=== PATIENT | male | born 1960 | race Caucasian/White ===

== ENCOUNTER 2019-10-05 14:43 | Outpatient (CLI) | payer OTHER, SELFPAY ==
[2019-10-05 14:53] LABS: Basophils Absolute Auto 0.06 K/mm3 (0.00-0.10); Basophils Percent Auto 0.6 % (0.0-1.0); Eosinophils Percent Auto 3.1 % (1.0-6.0); Hematocrit 51.4 % (40.0-54.0); Hemoglobin 17.3 g/dL (14.0-18.0); Immature Granulocyte Absolute 0.05 K/mm3 (0.00-0.00); Immature Granulocyte Percent A 0.5 % (0.0-0.0); Lymphocytes Absolute Auto 1.85 K/mm3 (1.10-4.50); Lymphocytes Percent Auto 19.3 % (18.0-42.0); Mean Corpuscular HGB Conc 33.7 g/dL (32.0-36.0); Mean Corpuscular Hemoglobin 30.1 pg (27.0-31.0); Mean Corpuscular Volume 89.4 fL (78.0-102.0); Mean Platelet Volume 9.7 fl (8.7-11.0); Monocytes Absolute Auto 0.94 K/mm3 (0.10-0.90); Monocytes Percent Auto 9.8 % (2.0-11.0); Neutrophils Absolute Auto 6.4 K/mm3 (1.7-7.2); Neutrophils Percent Auto 66.7 % (50.0-70.0); Platelet Count Result 208 K/mm3 (150-420); Red Blood Count 5.75 M/mm3 (4.70-6.10); Red Cell Distribution Width 13.6 % (11.6-14.4); White Blood Count 9.6 K/mm3 (4.8-10.8)
[2019-10-05 16:02] LABS: Alanine Aminotransferase 31 U/L (16-63); Alkaline Phosphatase 68 U/L (46-116); Anion Gap 14.5 mmol/L (7-16); Aspartate Amino Transferase 27 U/L (15-37); Bilirubin,Total 0.5 mg/dL (0.00-1.00); Blood Urea Nitrogen 27 mg/dL (7-18); Calcium 8.7 mg/dL (8.5-10.1); Carbon Dioxide 27 mmol/L (21-32); Chloride 102 mmol/L (98-108); Cholesterol 211 mg/dL (0-200); Estimated Glomerular Filt Rate 51; Glucose 81 mg/dL (70-99); HDL Direct 36 mg/dL (40-60); LDL Cholesterol Calculated 154 mg/dL (<130); Osmolality Calculated 292 mOsm/kg (285-295); Potassium 4.5 mmol/L (3.5-5.1); Prostate Specific Antigen 0.8 ng/mL (< OR = 4.0); Sodium 139 mmol/L (136-145); Total Protein 6.9 g/dL (6.4-8.2); Triglycerides 107 mg/dL (0-150)
[2019-10-09 14:50] LABS: Testosterone Free 41.2 pg/mL (35.0-155.0); Testosterone Total 358 ng/dL (250-1100)
== END 2019-10-05 14:44 | disposition home or self-care (01) ==
LOC: CHSLAB 14:46
PROVIDERS: PCP Nurse Practitioner Family; Visit Provider Nurse Practitioner Family
DX: I10 Essential (primary) hypertension (principal); R79.89 Other specified abnormal findings of blood chemistry; Z12.5 Encounter for screening for malignant neoplasm of prostate
CPT/HCPCS: 36415; 80053; 80061; 84153; 84402; 84403; 85025

== ENCOUNTER 2020-12-10 14:02 | Outpatient (CLI) | payer OTHER, SELFPAY ==
[2020-12-15 12:49] LABS: Testosterone Free 21.5 pg/mL (35.0-155.0); Testosterone Total 247 ng/dL (250-1100)
== END 2020-12-10 14:03 | disposition home or self-care (01) ==
LOC: CHSLAB 14:04
PROVIDERS: PCP Nurse Practitioner Family; Visit Provider Nurse Practitioner Family
DX: R79.89 Other specified abnormal findings of blood chemistry (principal)
CPT/HCPCS: 36415; 84402; 84403

== ENCOUNTER 2021-07-11 13:11 | Outpatient (CLI) | payer OTHER, SELFPAY ==
--- NOTE | ~2021-07-11 | US_ITS ---
EXAMINATION: US arterial ankle brachial ind DATE: 07/11/2021 13:38 INDICATION: Chest pain. Peripheral vascular disease risk factors of hypertension and smoking. TECHNIQUE: Segmental pressures and plethysmographic and Doppler waveforms of the brachial and lower e xtremity arteries were obtained. COMPARISON: None. FINDINGS: Right and left brachial artery pressures of 139 mm Hg and 146 mm Hg, respectively, are concordant (no rmal difference <= 30 mmHg). The right ankle-brachial index (CLAUDE) is 0.81 (normal >= 0.9-1.0). The right great toe-brachial index (TBI) is 0.80 (normal >= 0.65). Arterial Doppler waveforms are biphasic with brisk systolic upstrokes at both the right posterior tibial and dorsalis pedis arteries. The left CLAUDE is 0.75. The left TBI is 0.68. Arterial Doppler waveforms are biphasic with brisk systol ic upstrokes at both the left posterior tibial and dorsalis pedis arteries. IMPRESSION: 1. Arterial occlusive disease to the bilateral lower limbs with mildly decreased bilateral ABIs. Reviewed, dictated and finalized at location A. ITE SANDBLASTER APPRENTICE IMPRESSION: 1. Arterial occlusive disease to the bilateral lower limbs with mildly decrease d bilateral ABIs.
== END 2021-07-11 13:12 | disposition home or self-care (01) ==
LOC: CHSIMG 13:12
PROVIDERS: PCP Nurse Practitioner Family; Visit Provider Nurse Practitioner Family
DX: R07.9 Chest pain, unspecified (principal); M79.605 Pain in left leg; R25.2 Cramp and spasm; I77.1 Stricture of artery
CPT/HCPCS: 93922

== ENCOUNTER 2021-08-01 13:03 | Outpatient (CLI) | payer OTHER, SELFPAY ==
--- NOTE | ~2021-08-01 | XR_ITS ---
XR foot LT standing 2V DATE: 08/01/2021 13:23 INDICATION: Left foot pain between third and fourth digits after being run over by wheelchair TECHNIQUE: AP and lateral views COMPARISON: None FINDINGS: No fracture or dislocation, periosteal reaction or bone destruction. Joint spaces are prese rved. IMPRESSION: Negative Reviewed, dictated and finalized at location A. IMPRESSION: Negative
== END 2021-08-01 13:04 | disposition home or self-care (01) ==
LOC: CHSIMG 13:06
PROVIDERS: PCP Nurse Practitioner Family; Visit Provider Nurse Practitioner Family
DX: M79.672 Pain in left foot (principal)
CPT/HCPCS: 73620

== ENCOUNTER 2022-04-23 12:51 | Outpatient (CLI) | payer OTHER, SELFPAY ==
[2022-05-01 09:24] LABS: Testosterone Free 1403.7 pg/mL (46.0-224.0); Testosterone Total 4017 ng/dL (250-1100)
== END 2022-04-23 12:52 | disposition home or self-care (01) ==
LOC: CHSLAB 12:53
PROVIDERS: PCP Nurse Practitioner Family; Visit Provider Nurse Practitioner Family
DX: R79.89 Other specified abnormal findings of blood chemistry (principal)
CPT/HCPCS: 36415; 84402; 84403

== ENCOUNTER 2022-06-15 16:16 | Outpatient (CLI) | payer OTHER, SELFPAY ==
[2022-06-15 16:55] LABS: Cholesterol 183 mg/dL (0-200); HDL Direct 36 mg/dL (40-60); LDL Cholesterol Calculated 115 mg/dL (<130); Triglycerides 158 mg/dL (0-150)
[2022-06-23 13:35] LABS: Testosterone Free 21.7 pg/mL (35.0-155.0); Testosterone Total 163 ng/dL (250-1100)
== END 2022-06-15 16:17 | disposition home or self-care (01) ==
LOC: CHSLAB 16:18
PROVIDERS: PCP Nurse Practitioner Family; Visit Provider Nurse Practitioner Family
DX: R79.89 Other specified abnormal findings of blood chemistry (principal); E78.5 Hyperlipidemia, unspecified
CPT/HCPCS: 36415; 80061; 84402; 84403

== ENCOUNTER 2022-08-15 08:09 | Outpatient (CLI) | payer OTHER, SELFPAY ==
[2022-08-19 16:14] LABS: Testosterone Free 79.9 pg/mL (35.0-155.0); Testosterone Total 563 ng/dL (250-1100)
== END 2022-08-15 08:10 | disposition home or self-care (01) ==
LOC: CHSLAB 08:11
PROVIDERS: PCP Nurse Practitioner Family; Visit Provider Nurse Practitioner Family
DX: R79.89 Other specified abnormal findings of blood chemistry (principal)
CPT/HCPCS: 36415; 84402; 84403

== ENCOUNTER 2022-09-13 08:09 | Outpatient (CLI) | payer OTHER, SELFPAY ==
--- NOTE | ~2022-09-13 | US_ITS ---
US arterial duplex LE LT 09/13/2022 08:53 Indication: Left leg pain and symptoms involving the circulatory system. Procedure: High-resolution duplex arterial Doppler examination of the left lower extremity Comparison: Comparison to 07/11/2021. Findings: The following velocities were obtained: Common femoral artery-76 cm/s Profunda femoral artery-90 cm/s Proximal SFA-36 cm/s Mid SFA-occluded Distal SFA 24 cm/s Popliteal artery-20 cm/s Posterior tibial artery-19 cm/s Anterior tibial artery-12 cm/s Peroneal artery-13 cm/s Impression: 1: Diminished velocities in the left lower extremity throughout with occlusion of the mid aspect of t he SFA at the level of the stent. The distal SFA is filled with collateral vessels. Findings compatib le with advanced peripheral arterial disease. Reviewed, dictated and finalized at location L. Impression: 1: Diminished velocities in the left lower extremity throughout with occlusion of the mid aspect of the SFA at the level of the stent. The distal SFA is fille d with collateral vessels. Findings compatible with advanced peripheral arteria l disease.
--- NOTE | ~2022-09-13 | US_ITS ---
EXAMINATION:US venous doppler LE LT INDICATION:Left leg claudication TECHNIQUE: Multiple grayscale, color flow and Doppler images of the left lower extremity deep venous systems were obtained and reviewed. COMPARISON:No prior studies for comparison. FINDINGS: The common femoral, superficial femoral and popliteal veins demonstrate normal respiratory variation, augmentation and compressibility. Color flow is also seen within the posterior tibial, pe roneal, greater saphenous and profunda veins. IMPRESSION: 1: No lower extremity deep venous thrombosis. Reviewed, dictated and finalized at location L.
== END 2022-09-13 08:10 | disposition home or self-care (01) ==
LOC: CHSIMG 08:10
PROVIDERS: PCP Nurse Practitioner Family; Visit Provider Nurse Practitioner Family
DX: M79.605 Pain in left leg (principal); R09.89 Other specified symptoms and signs involving the circulatory and respiratory systems
CPT/HCPCS: 93926; 93971

== ENCOUNTER 2022-09-24 13:19 | Outpatient (CLI) | payer OTHER, SELFPAY ==
--- NOTE | 2022-09-24 13:23 | ECHO_ITS ---
Patient Info Name: Minerva Magdaleno Age: 62 years : 1960 Gender: Male Ht: 65 in Wt: 160 lbs BSA: 1.84 m2 HR: 68 bpm BP: 122 / 63 mmHg Heart Rhythm: Sinus Rhythm Technical Quality: Good Exam Date: 09/24/2022 1:13 PM Exam Location: [facility] Patient Status: Outpatient Admit Date: 09/24/2022 Staff Ordering Physician: Zoya Tanner NP Dental Ceramist Helper: Delia Rojas RDCS Attending Provider: Zoya Tanner NP Referring Physician: Flores ONTIVEROS; Exam Type: CA echo doppler color flow Study Info Indications - fatigue, chest discomfort Complete two-dimensional, color flow and Doppler transthoracic echocardiogram is performed. Summary 1. Complete two-dimensional, color flow and Doppler transthoracic echocardiogram is performed. 2. Left ventricular chamber dimension is normal. 3. Left ventricular systolic function is normal, estimated at 60-65%. 4. There is mild concentric increased left ventricular wall thickness. 5. The left ventricular diastolic function is grade II diastolic dysfunction. 6. E/e' 13 is mildly elevated. 7. There is trace mitral valve regurgitation. 8. No pulmonary hypertension, estimated pulmonary arterial systolic pressure is 17 mmHg. Left Ventricle E/e' 13 is mildly elevated. Left ventricular chamber dimension is normal. Left ventricular systolic function is normal, estimated at 60-65%. There is mild concentric increased left ventricular wall thickness. The left ventricular diastolic function is grade II diastolic dysfunction. Right Ventricle Right ventricular systolic function is normal and with normal TAPSE 2.3 cm. Right ventricular chamber dimension is normal. Left Atria Left atrial chamber dimension is normal. Right Atria Right atrial chamber dimension is normal. Aortic Valve The aortic valve is trileaflet. There is no aortic valve stenosis. There is no aortic valve regurgitation. Pulmonic Valve There is no pulmonic regurgitation. Mitral Valve There is no mitral valve stenosis. There is trace mitral valve regurgitation. Tricuspid Valve There is no tricuspid valve regurgitation. No pulmonary hypertension, estimated pulmonary arterial systolic pressure is 17 mmHg. Pericardium/Pleural There is no pericardial effusion. Inferior Vena Cava Normal inferior vena cava with >50% collapse upon inspiration consistent with normal right atrial pressure, 5 mmHg. Aorta The aortic root size at the sinus of Valsalva is normal. Left Ventricular Outflow Tract Name Value Normal LVOT 2D LVOT Diameter 2.0 cm LVOT Doppler LVOT Peak Velocity 111 cm/s LVOT Peak Gradient 5 mmHg LVOT Mean Gradient 2 mmHg LVOT VTI 17 cm LVOT VTI/AV VTI Ratio 0.5 LVOT Stroke Volume 53 ml Pulmonic Valve Name Value Normal RVOT Doppler RVOT Peak Gradient
== END 2022-09-24 13:20 | disposition home or self-care (01) ==
LOC: CHSIMG 13:20
PROVIDERS: PCP Nurse Practitioner Family; Visit Provider Nurse Practitioner Family
DX: R07.89 Other chest pain (principal); R53.83 Other fatigue
CPT/HCPCS: 93306

== ENCOUNTER 2022-09-26 08:31 | Outpatient (CLI) | payer OTHER, SELFPAY ==
[2022-09-26 08:48] LABS: Hematocrit 44.2 % (40.0-54.0); Hemoglobin 14.3 g/dL (14.0-18.0); Mean Corpuscular HGB Conc 32.4 g/dL (32.0-36.0); Mean Corpuscular Hemoglobin 27.6 pg (27.0-31.0); Mean Corpuscular Volume 85.3 fL (78.0-102.0); Mean Platelet Volume 9.7 fl (8.7-11.0); Platelet Count Result 240 K/mm3 (150-420); Red Blood Count 5.18 M/mm3 (4.70-6.10); Red Cell Distribution Width 15.4 % (11.6-14.4)
[2022-10-01 10:57] LABS: Testosterone Total 1012 ng/dL (250-1100)
== END 2022-09-26 08:32 | disposition home or self-care (01) ==
LOC: CHSLAB 08:32
PROVIDERS: PCP Nurse Practitioner Family; Visit Provider Internal Medicine
DX: R79.89 Other specified abnormal findings of blood chemistry (principal); Z12.5 Encounter for screening for malignant neoplasm of prostate
CPT/HCPCS: 36415; 84153; 84402; 84403; 85027; G0103

== ENCOUNTER 2023-09-04 17:00 | Outpatient (NON) | payer OTHER, SELFPAY | END 2023-09-04 17:01 | disposition home or self-care (01) | LOC: CHSLAB 17:02 | PROVIDERS: Visit Provider Nurse Practitioner Family | DX: L08.9 Local infection of the skin and subcutaneous tissue, unspecified (principal) | CPT/HCPCS: 87070; 87075; 87147; 87181; 87205 ==

== ENCOUNTER 2023-10-07 08:02 | Outpatient (CLI) | payer OTHER, SELFPAY ==
[2023-10-07 08:18] LABS: Basophils Absolute Auto 0.11 K/mm3 (0.00-0.10); Basophils Percent Auto 1.2 % (0.0-1.0); Eosinophils Absolute Auto 0.33 K/mm3 (0.02-0.50); Eosinophils Percent Auto 3.5 % (1.0-6.0); Hematocrit 54.1 % (40.0-54.0); Hemoglobin 16.9 g/dL (14.0-18.0); Immature Granulocyte Absolute 0.03 K/mm3 (0.00-0.00); Immature Granulocyte Percent A 0.3 % (0.0-0.0); Lymphocytes Absolute Auto 1.04 K/mm3 (1.10-4.50); Lymphocytes Percent Auto 11.1 % (18.0-42.0); Mean Corpuscular HGB Conc 31.2 g/dL (32-36); Mean Corpuscular Hemoglobin 26.6 pg (27.0-31.0); Mean Corpuscular Volume 85.1 fL (78.0-102.0); Mean Platelet Volume 9.2 fl (8.7-11.0); Monocytes Absolute Auto 0.66 K/mm3 (0.10-0.90); Neutrophils Absolute Auto 7.24 K/mm3 (1.70-7.20); Neutrophils Percent Auto 76.9 % (50.0-70.0); Platelet Count Result 194 K/mm3 (150-420); Red Blood Count 6.36 M/mm3 (4.70-6.10); White Blood Count 9.4 K/mm3 (4.8-10.8)
[2023-10-07 08:55] LABS: Alanine Aminotransferase 30 U/L (16-63); Albumin Level 3.9 g/dL (3.4-5.0); Alkaline Phosphatase 88 U/L (46-116); Anion Gap 11 mmol/L (4-12); Aspartate Amino Transferase 26 U/L (15-37); Bilirubin,Total 0.3 mg/dL (0.00-1.00); Blood Urea Nitrogen 26 mg/dL (7-18); Calcium 8.9 mg/dL (8.5-10.1); Carbon Dioxide 25 mmol/L (21-32); Chloride 104 mmol/L (98-108); Cholesterol 164 mg/dL (0-200); Estimated Glomerular Filt Rate 56; Glucose 103 mg/dL (70-99); HDL Direct 38 mg/dL (40-60); LDL Cholesterol Calculated 101 mg/dL (<130); Osmolality Calculated 294 mOsm/kg (285-295); Potassium 4.3 mmol/L (3.5-5.1); Sodium 140 mmol/L (136-145); Thyroid Stimulating Hormone 1.96 uIU/mL (0.36-3.74); Total Protein 7.2 g/dL (6.4-8.2); Triglycerides 127 mg/dL (0-150)
[2023-10-10 12:23] LABS: Testosterone Free 62.4 pg/mL (35.0-155.0); Testosterone Total 451 ng/dL (250-1100)
== END 2023-10-07 08:03 | disposition home or self-care (01) ==
LOC: CHSLAB 08:03
PROVIDERS: PCP Nurse Practitioner Family; Visit Provider Nurse Practitioner Family
DX: Z00.00 Encounter for general adult medical examination without abnormal findings (principal); R79.89 Other specified abnormal findings of blood chemistry
CPT/HCPCS: 36415; 80053; 80061; 84402; 84403; 84443; 85025

== ENCOUNTER 2023-12-19 12:01 | Outpatient (CLI) | payer OTHER, SELFPAY ==
[2023-12-19 12:22] LABS: Hematocrit 53.4 % (40.0-54.0); Hemoglobin 17.2 g/dL (14.0-18.0); Mean Corpuscular HGB Conc 32.2 g/dL (32-36); Mean Platelet Volume 9.4 fl (8.7-11.0); Platelet Count Result 176 K/mm3 (150-420); Red Blood Count 6.36 M/mm3 (4.70-6.10); Red Cell Distribution Width 17.7 % (11.6-14.4); White Blood Count 8.4 K/mm3 (4.8-10.8)
[2023-12-19 13:32] LABS: Alanine Aminotransferase 33 U/L (16-63); Albumin Level 3.8 g/dL (3.4-5.0); Alkaline Phosphatase 99 U/L (46-116); Anion Gap 5 mmol/L (4-12); Aspartate Amino Transferase 28 U/L (15-37); Bilirubin,Total 0.4 mg/dL (0.00-1.00); Blood Urea Nitrogen 20 mg/dL (7-18); Calcium 8.7 mg/dL (8.5-10.1); Carbon Dioxide 30 mmol/L (21-32); Chloride 101 mmol/L (98-108); Estimated Glomerular Filt Rate > 60; Glucose 80 mg/dL (70-99); Osmolality Calculated 283 mOsm/kg (285-295); Potassium 4.4 mmol/L (3.5-5.1); Sodium 136 mmol/L (136-145); Total Protein 6.6 g/dL (6.4-8.2)
[2023-12-20 09:23] LABS: Cholesterol 124 mg/dL (0-200); HDL Direct 36 mg/dL (40-60); LDL Cholesterol Calculated 73 mg/dL (<130); Triglycerides 77 mg/dL (0-150)
[2023-12-20 09:47] LABS: Prostate Specific Antigen 1.2 ng/mL (< OR = 4.0)
[2023-12-23 12:33] LABS: Testosterone Free 309.9 pg/mL (35.0-155.0); Testosterone Total 1280 ng/dL (250-1100)
== END 2023-12-19 12:02 | disposition home or self-care (01) ==
LOC: CHSLAB 12:02
PROVIDERS: Family Medicine; PCP Nurse Practitioner Family; Visit Provider Nurse Practitioner Family
DX: N52.9 Male erectile dysfunction, unspecified (principal); R35.1 Nocturia; E78.5 Hyperlipidemia, unspecified
CPT/HCPCS: 36415; 80053; 80061; 84153; 84402; 84403; 85027; G0103

== ENCOUNTER 2024-01-20 09:31 | Outpatient (CLI) | payer OTHER, SELFPAY ==
[2024-01-25 01:38] LABS: Testosterone Free 74.5 pg/mL (35.0-155.0); Testosterone Total 453 ng/dL (250-1100)
== END 2024-01-20 09:32 | disposition home or self-care (01) ==
LOC: CHSLAB 09:33
PROVIDERS: PCP Nurse Practitioner Family; Visit Provider Nurse Practitioner Family
DX: Z79.890 Hormone replacement therapy (principal)
CPT/HCPCS: 36415; 84402; 84403

== ENCOUNTER 2024-02-18 08:58 | Outpatient (CLI) | payer OTHER, SELFPAY ==
[2024-02-22 11:04] LABS: Testosterone Total 359 ng/dL (250-1100)
== END 2024-02-18 08:59 | disposition home or self-care (01) ==
LOC: CHSLAB 08:58
PROVIDERS: PCP Nurse Practitioner Family; Visit Provider Nurse Practitioner Family
DX: Z79.890 Hormone replacement therapy (principal)
CPT/HCPCS: 36415; 84403

== ENCOUNTER 2024-08-05 12:50 | Outpatient (NON) | payer OTHER, SELFPAY ==
--- OUTSIDE RECORDS SUMMARY | 2024-08-05 14:01 | XMS_ITS | Clinical Summary ---
Author Organization [facility] Address [address] [place] [address] Phone Care Team Providers Care Record Changer Name Role Phone [place] VALENZUELA, LINCOLN CAMPOVERDE MD, SINDY Primary Care Provider [phone] Reason for Visit and Chief Complaint The Chief Complaint is: Patient is here for 3 mo f/u Plan of Treatment Urine sample ordered and sent to lab for testing with confirmation via LCMS when appropriate. Urine drug testing is ordered to monitor opioid use and ongoing candidacy; verify compliant use of controlled substances and monitor for use of illicit substances as these may result in harmful interactions. - Last Documented On 05/17/2020 4:23PM ; [facility] Instructions to patient Intervention and counseling on cessation of tobacco use : Patient recieved smoking cessation handout Last Documented On 3:16PM ; [facility] Education and Decision Aids were provided during visit for: Pill Count: Patient did not bring pain medication to appointment for pill count, per policy. Advised in order to continue to safely prescribe opioids, medication must be brought to each appointment Last Documented On 3:23PM ; [facility] Assessments Includes: Assessments from this encounter Findings - Lumbar spondylosis with radiculopathy [M47.26 - Other spondylosis with radiculopathy, lumbar region] - Last Documented On 05/17/2020 4:23PM ; [facility] - Lumbosacral spinal stenosis [M48.07 - Spinal stenosis, lumbosacral region] - Last Documented On 05/17/2020 4:23PM ; [facility] - Myalgia [M79.18 - Myalgia, other site] - Last Documented On 05/17/2020 4:23PM ; [facility] - Chronic pain syndrome [G89.4 - Chronic pain syndrome] - Last Documented On 05/17/2020 4:23PM ; [facility] - intermediate use of opiate analgesic [Z79.891 - intermediate (current) use of opiate analgesic] - Last Documented On 05/17/2020 4:23PM ; [facility] Instructions Includes: Instructions from this encounter Instructions to patient Intervention and counseling on cessation of tobacco use : Patient recieved smoking cessation handout Last Documented On 1 3:16PM ; [facility] Education and Decision Aids were provided during visit for: Pill Count: Patient did not bring pain medication to appointment for pill count, per policy. Advised in order to continue to safely prescribe opioids, medication must be brought to each appointment Last Documented On 3:23PM ; [facility] Medical Equipment - Implanted Devices Includes: Current Devices No Medical Equipment Recorded Medications Includes: Medications discussed during this encounter and other current Medications New / Renewed during this visit ZACH CONTRERAS on 05/17/2020 Hysingla ER 30 MG Oral Table t ER 24 Hour Abuse-Deterrent Provider: ZACH CONTRERAS 30 day supply: 30 tablet, 0 refills Diagnosis: Spinal stenosis, lumbosacral region One tablet dailyfill 04/16/20 [facility] [id number] [place] [address], [id number] - Last Documented On 1 8:28AM By ZACH CONTRERAS ; [facility] Current Medications (continue as prescribed) Hysingla ER 30 MG Oral Table t ER 24 Hour Abuse-Deterrent 06/14/2020 Provider: ZACH CONTRERAS Diagnosis: Spinal stenosis, lumbosacral region One tablet dailyfill 06/15/20 Last Documented On 1 8:29AM By ZACH CONTRERAS ; [facility] Cyclobenzaprine HCl 5 MG Ora l Tablet 04/18/2020 Provider: ZACH CONTRERAS Diagnosis: Muscle spasm of back 1 BID prn Last Documented [facility] 0 11:26AM [facility] Pregabalin 100 MG Oral Capsule 02/18/2020 [facility] Diagnosis: Spinal stenosis, lumbosacral region 1 CAPSULE TWO TIMES A DAY Last Documented On 0 10:33AM [facility] ; [facility] Lyrica 75 MG Oral Capsule 12/03/2019 Provider: [facility] Diagnosis: Other spondylosi s with radiculopathy, lumbar region 1 CAPSULE TWO TIMES A DAY Last Documented On 0 8:57AM By [facility] ; [facility] Depo-Testosterone 200MG/ML Intramuscular Solution 12/04 Provider: Diagnosis: Last Documented On 9 1:53PM By Desi SHERMAN ; [facility] Fenofibrate 54MG Oral Tablet 12/18/2018 Provider: Diagnosis: Last Documented On 9 1:53PM By Desi SHERMAN ; [facility] Metoprolol Succinate ER 100M G Oral Tablet Extended Release 24 Hour 12/18/2018 Provider: Diagnosis: Last Documented On 9 1:52PM By Desi SHERMAN ; [facility] Lexapro 20MG Oral Tablet 12/18/2018 Provider: Diagnosis: Last Documented On 9 1:52PM By Desi SHERMAN ; [facility] Flonase Allergy Relief 50MCG/ACT Nasal Suspension 12/04 Provider: Diagnosis: Last Documented On 9 1:52PM By Desi SHERMAN ; [facility] Past Medications on file Gabapentin 400 MG Oral Capsule 06/22/2020 - 07/22/2020 Provider: LAVELL Mosley Diagnosis: Radiculopathy, l umbar region One tablet three times a day Last Documented On 06/22/2020 6:25PM By Lavell Mckeon MD ; [facility] Medications Administered Includes: Administered Medications from this encounter No Administered Medications Recorded Vital Signs Includes: Vital Signs from this encounter Vital Name 05/17/2020 03:19P Blood Pressure Sitting (mmHg) 162/90 Pulse Rate-Sitting (bpm) 81 Temp-Oral (F) 97.3 Weight (lb) 175 Pain Level 4 Oxygen Saturation (%) 97 Last Documented: On 05/17/2020 3:21PM ; [facility] Results Includes: Results discussed during this encounter No Results Recorded For Specified Dates History of Present Illness Includes: History of Present Illness from this encounter GOOD KELLER is a 60 year old male. Patient presents in follow up for medication. He complains of chronic low back pain with radicular symptoms. He failed to get lasting benefit from injections in the past. Hysingla daily helps, he is needing a refill. Ibuprofen is used daily. Lyrica 100mg BID is helping. Medication helps and allows him to maintain function levels. MRI shows moderate sized disc protrusion into the left lateral recess of L5 with L>R foraminal narrowing at this level, moderate spinal stenosis, severe left, moderate to severe right foraminal stenosis at L5-S1. - Allergy list reviewed - Medication reconciliation performed - Medication list reviewed with patient - Prescription Drug Monitoring Program website checked. 04/16/2020-hysingla 04/17/2020- hydrocodone ? How much of the medication are you taking a day? hysingla- 1 daily - Last dose of medication? saturday night - Last drug screen appropriate 11/02/2019 Social History Description Last Updated Current smoker 05/17/2020 Last Documented On 1 4:23PM ; [facility] Smoker 11/02/2019 Last Documented On 1 3:16PM ; [facility] Smoking status : Current everyday smoker 05/14/2019 Last Documented On 1 3:16PM ; [facility] Procedures and Surgical History Includes: Procedures from this encounter Procedures Code Diagnosis Performing Provider Service L ocation Service Date intervention and counseling on cessation of tobacco use : Patient recieved smoking cessation handout 4000F Last Documented On 1 3:16PM ; [facility] use of tobacco assessment performed 1000F Last Documented On 1 3:16PM ; [facility] standardized depression screening: negative for symptoms 3351F Last Documented On 1 3:19PM ; [facility] review of medications documented 1160F Last Documented On 1 3:16PM ; [facility] screening for adult depression: impressi on and score three Last Documented On 1 3:19PM ; [facility] Medical History Includes: Medical History addressed during this encounter No Medical History Recorded Family History Includes: Family History addressed during this encounter No Family History Recorded Review of Systems Includes: Review of Systems from this encounter Systemic: No fever, no chills, and no recent weight change. Head: No headache. Cardiovascular: No chest pain or discomfort. Pulmonary: No dyspnea. Musculoskeletal: Lower back pain and muscle aches. Neurological: No dizziness, no vertigo, and no motor disturbances. Sensory disturbances. Psychological: No anxiety. Depression. Skin: No rash. Mental Status Includes: Mental Status from this encounter Description Oriented to time, place, and person No anxiety Functional Status Includes: Functional Status from this encounter No Functional Status Recorded Physical Exam Includes: Physical Exam from this encounter Allergies Includes: Active Allergies Substance Type Reaction Onset Date Resolved Date Statu s Lyrica Allergy Shortness of Breath / Dyspnea 05/17/2020 Active Last Documented On 1 3:19PM ; [facility] Encounters Encounter Provider Location Date Check-In Time Check-Out Time Diagnosis PAIN MANAGEMENT FOLLOW UP ZACH MIRAMONTES [facility] 05/17/19 21 3:30PM 3:53PM Chronic Pain Syndrome,Spondyl osis with Radiculopathy Lumbar Region,Spinal Stenosis Lumbosacral,Myal fredis,Bottom Man Use of Opiate Analgesic Insurance Includes: Active Insurance Policies Plan Name Member ID Group # Subscriber Relationship Effect jim Dates 1 - [employer] [id number] IGOR KELLER Self Clinical Notes Includes: Clinical Notes from this encounter No Clinical Notes Recorded
--- OUTSIDE RECORDS SUMMARY | 2024-08-05 14:01 | XMS_ITS | Clinical Summary ---
Author Organization [facility] Address [address] [place] [address] Care Team Providers Care Threshing Operator Name Role Phone Zoya Tanner BOWLING ALLEY ATTENDANT Primary Care Provider [phone] Una Zurita MD Unavailable Allergies Active Allergy Reactions Criticality Noted Date Comments Pregabalin Shortness of Breath High 05/17/2020 Medications gabapentin 400 MG capsule Take 1 capsule (400 mg total) by mouth 3 (three) times daily. Active aspirin 325 MG tablet Take 1 tablet (325 mg total) by mouth daily. Active sildenafil (VIAGRA) 50 MG tablet Take 1 tablet (50 mg total) by mouth daily as needed for Erectile Dysfunction. Active Testosterone Cypionate 200 MG/ML Solution Inject 400 mg as directed every 30 (thirty) days. Active cyclobenzaprine (FLEXERIL) 10 MG tablet Take 1 tablet (10 mg total) by mouth nightly as needed for Muscle Spasms. Active ciclopirox (PENLAC) 8 % solution APPLY DAILY TO NAILS - DO NOT WASH NAILS FOR 8 HOURS POST APPLICATION , APPLY OVER PREVIOUS COAT , REMOVE WITH ALCOHOL EVERY 7 DAYS Active levOCARNitine 250 MG capsule Take 1 capsule (250 mg total) by mouth 2 (two) times daily. Active Arginine Alpha-Ketogluta rate (L-ARGININE) 350 MG Tab CR Take 350 mg by mouth daily. Active clopidogrel (PLAVIX) 75 MG tablet Take 1 tablet (75 mg total) by mouth daily. 30 tablet 11 4 Active rosuvastatin (CRESTOR) 20 MG tablet Take 1 tablet (20 mg total) by mouth nightly at bedtime. 90 tablet 3 4 Active metoprolol succinate ER (TOPROL-XL) 200 MG 24 hr tablet Take 1 tablet (200 mg total) by mouth daily. 30 tablet 11 4 Active lisinopril-hydr oCHLOROthiazide (ZESTORETIC) 20-25 MG tablet Take 1 tablet by mouth daily. 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 Gender Identity Not on file Sexual Orientation Not on file Last Filed Vital Signs Vital Sign Reading Time Taken Comments Blood Pressure 138/82 11/20/2023 9:21 AM CDT Pulse 71 11/20/2023 9:21 AM CDT Temperature 36.9 C (98.4 F) 09/01/2021 6:28 AM CDT Respiratory Rate 16 11/20/2023 9:21 AM CDT Oxygen Saturation 97% 11/20/2023 9:21 AM CDT Inhaled Oxygen Concentration - - Weight 78.5 kg (173 lb) 11/20/2023 9:21 AM CDT Height 165.1 cm (5' 5 ) 11/20/2023 9:21 AM CDT Body Mass Index 28.79 11/20/2023 9:21 AM CDT Plan of Treatment Upcoming Encounters Date Type Department Care Team (Late st Contact Info) Description 11/26/2024 9:30 AM CDT [facility] [address] [place] [address] Una Zurita MD [address] [place] [phone] Health Maintenance Due Date Last Done Comments Colorectal Cancer Screening Colonoscopy (10 Years) 1960 Annual Physical 01/05/1964 Pneumococcal Vaccine: Pediatrics (0 to 5 Years) and At-Risk Patients (6 to 64 Years) (1 of 2 - PCV) 1967 Hepatitis C 1979 Zoster Vaccines (1 of 2) 2011 COVID-19 Vaccine (3 - 2023-2 5 season) 2024 05/17/2021, 07/11/2020, 07/11/2020 Influenza Adult (#1) 2024 03/19/2020, 02/14/2017 DTaP, Tdap and Td Vaccines ( 2 - Td or Tdap) 09/03/2033 09/04/2023 RSV Immunization or 60+ Years (1 - 1-dose 75+ series) 01/05/2036 Meningococcal B Vaccine Aged Out No l onger eligible based on patient's age to complete this topic Meningococcal Vaccine Aged Out No aleisha dmitry eligible based on patient's age to complete this topic RSV Immunizations Under 20 Months Aged Out No longer eligible b ased on patient's age to complete this topic Insurance [employer] Advance Directives * Full Code (Latest Code Status on File) Date Activated Date Inactivated Comments 09/01/2021 9:43 AM 09/01/2021 7:23 PM Care Teams Threshing Operator Relationship Specialty Start Date End Date Zoya Tanner FNP [address] [place] [address] PCP - General NURSE PRACTITIONER 08/31/21 Una Zurita MD [address] [place] [address] [place] Pharmacist CARDIOVASCULAR DISEASE 10/03/22
--- OUTSIDE RECORDS SUMMARY | 2024-08-05 14:01 | XMS_ITS | Clinical Summary ---
Author Organization [facility] Address [address] [place] [address] Phone Care Team Providers Care Painter Sign Maintenance Name Role Phone OH VALENZUELA, LINCOLN CAMPOVERDE MD, SINDY Primary Care Provider [phone] Reason for Visit and Chief Complaint RX ISSUE/REFILL Plan of Treatment No Plan of Treatment Recorded Assessments Includes: Assessments from this encounter No Assessments Recorded Medical Equipment - Implanted Devices Includes: Current Devices No Medical Equipment Recorded Medications Includes: Medications discussed during this encounter and other current Medications Current Medications (continue as prescribed) Hysingla ER 30 MG Oral Table t ER 24 Hour Abuse-Deterrent 06/14/2020 Provider: ZACH CARDENAS ANP-BC Diagnosis: Spinal stenosis, lumbosacral region One tablet dailyfill 06/15/20 Last Documented On 1 8:29AM By ZACH LY-BC ; [facility] Cyclobenzaprine HCl 5 MG Ora l Tablet 04/18/2020 Provider: ZACH MIRAMONTES ANP-BC Diagnosis: Muscle spasm of back 1 BID prn Last Documented On 0 11:26AM By ZACH LY-BC ; [facility] Pregabalin 100 MG Oral Capsule 02/18/2020 Provider: ZACH CONTRERAS Diagnosis: Spinal stenosis, lumbosacral region 1 CAPSULE TWO TIMES A DAY Last Documented On 0 10:33AM By ZACH LY-BC ; [facility] Lyrica 75 MG Oral Capsule 12/03/2019 Provider: ZACH MIRAMONTES ANP FlaviaBC Diagnosis: Other spondylosi s with radiculopathy, lumbar region 1 CAPSULE TWO TIMES A DAY Last Documented On 0 8:57AM By ZACH MIRAMONTES [facility] ; [facility] Depo-Testosterone 200MG/ML Intramuscular Solution 12/04 Provider: Diagnosis: Last Documented On 9 1:53PM By Desi Lopez Marilee ; [facility] Fenofibrate 54MG Oral Tablet 12/18/2018 Provider: Diagnosis: Last Documented On 9 1:53PM By Desi SHERMAN ; [facility] Metoprolol Succinate ER 100M G Oral Tablet Extended Release 24 Hour 12/18/2018 Provider: Diagnosis: Last Documented On 9 1:52PM By Desi SHERMAN ; [facility] Lexapro 20MG Oral Tablet 12/18/2018 Provider: Diagnosis: Last Documented On 9 1:52PM By Desi SHERMAN ; [facility] Flonase Allergy Relief 50MCG/ACT Nasal Suspension 12/04 Provider: Diagnosis: Last Documented On 9 1:52PM By Desi SHERMAN ; [facility] Past Medications on file Gabapentin 400 MG Oral Capsule 06/22/2020 - 07/22/2020 Provider: BLU Mosley Diagnosis: Radiculopathy, l umbar region One tablet three times a day Last Documented On 06/22/2020 6:25PM By Blu Mckeon MD ; [facility] Medications Administered Includes: Administered Medications from this encounter No Administered Medications Recorded Results Includes: Results discussed during this encounter No Results Recorded For Specified Dates History of Present Illness Includes: History of Present Illness from this encounter HPI IGOR KELLER is a 60 year old male. Pharmacy name:~location:[facility]. Social History Description Last Updated Current smoker 05/17/2020 Last Documented On 1 11:37AM ; [facility] Smoker 11/02/2019 Last Documented On 1 11:37AM ; [facility] Smoking status : Current everyday smoker 05/14/2019 Last Documented On 1 11:37AM ; [facility] Medical History Includes: Medical History addressed during this encounter No Medical History Recorded Family History Includes: Family History addressed during this encounter No Family History Recorded Review of Systems Includes: Review of Systems from this encounter No Review of Systems Recorded Mental Status Includes: Mental Status from this encounter No Mental Status Recorded Functional Status Includes: Functional Status from this encounter No Functional Status Recorded Physical Exam Includes: Physical Exam from this encounter No Physical Exam Recorded Allergies Includes: Active Allergies Substance Type Reaction Onset Date Resolved Date Statu s Lyrica Allergy Shortness of Breath / Dyspnea 05/17/2020 Active Last Documented On 3:19PM ; [facility] Encounters Encounter Provider Location Date Check-In Time Check-Out Time Diagnosis RX ISSUE/REFILL ZACH LY-CHANDU 06/13/2020 11:37AM 11:59PM Insurance Includes: Active Insurance Policies Plan Name Member ID Group # Subscriber Relationship Effect jim Dates 1 - [employer] [id number] IGOR KELLER Self Clinical Notes Includes: Clinical Notes from this encounter No Clinical Notes Recorded
--- OUTSIDE RECORDS SUMMARY | 2024-08-05 14:01 | XMS_ITS | Clinical Summary ---
Author Organization [facility] Address [address] [place] [address] Phone Care Team Providers Care International Account Manager Name Role Phone OH VALENZUELA, LINCOLN CAMPOVERDE MD, SINDY Primary Care Provider [phone] Reason for Visit and Chief Complaint * PHONE CALL Plan of Treatment No Plan of Treatment [...] 8:29AM By ZACH LY-BC ; [facility] Cyclobenzaprine HCl 5 MG Ora l Tablet 04/18/2020 Provider: ZACH MIRAMONTES ANP-BC Diagnosis: Muscle spasm of back 1 BID prn Last Documented On 0 11:26AM By ZACH LY-BC ; [facility] Pregabalin 100 MG Oral Capsule 02/18/2020 Provider: ZACH CONTRERAS Diagnosis: Spinal stenosis, lumbosacral region 1 CAPSULE TWO TIMES A DAY Last Documented On 0 10:33AM By ZACH LY-BC ; [facility] Lyrica 75 MG Oral Capsule 12/03/2019 Provider: ZACH MIRAMONTES ANP TYLOR Diagnosis: Other spondylosi s with radiculopathy, lumbar region 1 CAPSULE TWO TIMES A DAY Last Documented On 0 8:57AM By ZACH MIRAMONTES [facility] ; [facility] Depo-Testosterone 200MG/ML Intramuscular Solution 12/04 Provider: Diagnosis: Last Documented On 9 1:53PM By Desi SHERMAN ; [facility] Fenofibrate 54MG Oral Tablet 12/18/2018 Provider: Diagnosis: Last Documented On 9 1:53PM By Desi SHERMAN ; [facility] Metoprolol Succinate ER 100M G Oral Tablet Extended Release 24 Hour 12/18/2018 Provider: Diagnosis: Last Documented On 9 1:52PM By Desi SHERMAN ; [facility] Lexapro 20MG Oral Tablet 12/18/2018 Provider: Diagnosis: Last Documented On 9 1:52PM By Desi SHERMAN ; [facility] Flonase Allergy Relief 50MCG/ACT Nasal Suspension 12/04 Provider: Diagnosis: Last Documented On 9 1:52PM By Desi SHERMAN ; [facility] Past Medications on file Gabapentin 400 MG Oral Capsule 06/22/2020 - 07/22/2020 Provider: LAVELL Mosley Diagnosis: Radiculopathy, l umbar region One tablet three times a day Last Documented On 06/22/2020 6:25PM By Lavell Mckeon MD ; [facility] Medications Administered Includes: Administered Medications from this encounter No Administered Medications Recorded Results Includes: Results discussed during this encounter No Results Recorded For Specified Dates History of Present Illness Includes: History of Present Illness from this encounter No History of Present Illness Recorded Social History Description Last Updated Current smoker 05/17/2020 Last Documented On 1 1:31PM ; [facility] Smoker 11/02/2019 Last Documented On 1 1:31PM ; [facility] Smoking status : Current everyday smoker 05/14/2019 Last Documented On 1 1:31PM ; [facility] Medical History Includes: Medical History [...] Last Documented On 3:19PM ; [facility] Encounters Encounter Provider Location Date Check-In Time Check-Out Time Diagnosis * PHONE CALL ZACH LY- 07/01/2020 1:31PM 11:59PM Insurance Includes: Active Insurance Policies Plan Name Member ID Group # Subscriber Relationship Effect jim Dates 1 - [employer] [id number] IGOR KELLER Self Clinical Notes Includes: Clinical Notes from this encounter No Clinical Notes Recorded
--- OUTSIDE RECORDS SUMMARY | 2024-08-05 14:01 | XMS_ITS | Clinical Summary ---
Author Organization [facility] Address [address] [place] [address] Phone Care Team Providers Care Security Analyst Name Role Phone OH VALENZUELA, LINCOLN CAMPOVERDE MD, SINDY Primary Care Provider [phone] Reason for Visit and Chief Complaint RX ISSUE/REFILL Plan of Treatment No Plan of Treatment Recorded Assessments Includes: Assessments from this encounter No Assessments Recorded Medical Equipment - Implanted Devices Includes: Current Devices No Medical Equipment Recorded Medications Includes: Medications discussed during this encounter and other current Medications New / Renewed during this visit ZACH CONTRERAS on 04/13/2020 Hysingla ER 30 MG Oral Table t ER 24 Hour Abuse-Deterrent Provider: ZACH CONTRERAS 30 day supply: 30 tablet, 0 refills Diagnosis: Spinal stenosis, lumbosacral region One tablet dailyfill 04/16/20 Pharmacy: [address], [address] - Last Documented On 1 3:28PM By ZACH CONTRERAS ; [facility] Current Medications (continue as prescribed) Hysingla ER 30 MG Oral Table t ER 24 Hour Abuse-Deterrent 06/14/2020 Provider: ZACH CONTRERAS Diagnosis: Spinal stenosis, lumbosacral region One tablet dailyfill 06/15/20 Last Documented On 1 8:29AM By ZACH CONTRERAS ; [facility] Cyclobenzaprine HCl 5 MG Ora l Tablet 04/18/2020 Provider: ZACH CONTRERAS Diagnosis: Muscle spasm of back 1 BID prn Last Documented On 0 11:26AM By ZACH CONTRERAS ; [facility] Pregabalin 100 MG Oral Capsule 02/18/2020 Provider: ZACH CONTRERAS Diagnosis: Spinal stenosis, lumbosacral region 1 CAPSULE TWO TIMES A DAY Last Documented On 0 10:33AM By ZACH CONTRERAS ; [facility] Lyrica 75 MG Oral Capsule 12/03/2019 Provider: ZACH SNIDER Diagnosis: Other spondylosi s with radiculopathy, lumbar region 1 CAPSULE TWO TIMES A DAY Last Documented On 0 8:57AM By ZACH GARCIA ; [facility] Depo-Testosterone 200MG/ML Intramuscular Solution 12/04 Provider: Diagnosis: Last Documented On 9 1:53PM By Desi SHERMAN ; [facility] Fenofibrate 54MG Oral Tablet 12/18/2018 Provider: Diagnosis: Last Documented On 9 1:53PM By Desi SHERMAN ; [facility] Metoprolol Succinate ER 100M G Oral Tablet Extended Release 24 Hour 12/18/2018 Provider: Diagnosis: Last Documented On 9 1:52PM By Desi SHERMAN ; [facility] Lexapro 20MG Oral Tablet 12/18/2018 Provider: Diagnosis: Last Documented On 9 1:52PM By Desi SHERMAN ; [facility] Flonase Allergy Relief 50MCG/ACT Nasal Suspension 12/04 Provider: Diagnosis: Last Documented On 9 1:52PM By Desi SHERMAN ; [facility] Past Medications on file Gabapentin 400 MG Oral Capsule 06/22/2020 - 07/22/2020 Provider: LAVELL Mosley Diagnosis: Radiculopathy, l umbar region One tablet three times a day Last Documented On 06/22/2020 6:25PM By Lavell Mckeon MD ; [facility] Medications Administered Includes: Administered Medications from this encounter No Administered Medications Recorded Results Includes: Results discussed during this encounter No Results Recorded For Specified Dates History of Present Illness Includes: History of Present Illness from this encounter No History of Present Illness Recorded Social History Description Last Updated Smoker 11/02/2019 Last Documented On 0 11:21AM ; [facility] Smoking status : Current everyday smoker 05/14/2019 Last Documented On 0 11:21AM ; [facility] Medical History Includes: Medical History [...] Active Last Documented On 1 3:19PM ; [facility] Encounters Encounter Provider Location Date Check-In Time Check-Out Time Diagnosis RX ISSUE/REFILL ZACH MIRAMONTES ANP-BC 04/13/2020 11:21AM 11:59PM Insurance Includes: Active Insurance Policies Plan Name Member ID Group # Subscriber Relationship Effect jim Dates 1 - [employer] [id number] IGOR KELLER Self Clinical Notes Includes: Clinical Notes from this encounter No Clinical Notes Recorded
--- OUTSIDE RECORDS SUMMARY | 2024-08-05 14:01 | XMS_ITS ---
Care Plan - [facility] Created on: August 05, 2024 ARIANNASHELLEYOLMAN Harden : 1960 Sex: Male Author Organization [facility] Address [address] [place] [address] Phone Care Team Providers Care Juvenile Court Judge Name Role Phone [place] VALENZUELA, LINCOLN CAMPOVERDE MD, SINDY Primary Care Provider [phone]
--- OUTSIDE RECORDS SUMMARY | 2024-08-05 14:01 | XMS_ITS | Encounter Summary ---
Author Organization [facility] Address [address] [place] [address] Care Team Providers Care Knurling Machine Operator Name Role Phone Zoya Tanner Primary Care Provider [phone] Una Zurita MD Unavailable Encounter Details Date Type Department Care Team (Late st Contact Info) Description 07/20/2017 Abstract [facility] CONVERSION [address] [place] [address] , Generic ConversionMD Social History Tobacco Use Types Packs/Day Years Used Date Smoking Tobacco: Never Assessed Sex and Gender Information Value Date Recorded Sex Assigned at Not on file Legal Sex Male 9:27 PM SEO PROFESSIONAL Gender Identity Not on file Sexual Orientation Not on file documented as of this encounter Plan of Treatment Upcoming Encounters Date Type Department Care Team (Late st Contact Info) Description 11/26/2024 9:30 AM CDT [facility] [id number] [place] [address] Una Zurita MD [address] [place], [place] [id number] documented as of this encounter Visit Diagnoses Not on filedocumented in this encounter Care Teams Knurling Machine Operator Relationship Specialty Start Date End Date Zoya Tanner FNP [address] [place] [address] PCP - General NURSE PRACTITIONER 08/31/21 Una Zurita MD [address] [place] [address] [place] [facility] [employer] CARDIOVASCULAR DISEASE 10/03/22 documented as of this encounter
--- OUTSIDE RECORDS SUMMARY | 2024-08-05 14:02 | XMS_ITS | Clinical Summary ---
Author Organization [facility] Address [address] [place] [address] Phone Care Team Providers Care Vp Security Name Role Phone OH VALENZUELA, LINCOLN CAMPOVERDE MD, SINDY Primary Care Provider [phone] Reason for Visit and Chief Complaint * PHONE CALL Plan of Treatment No Plan of Treatment Recorded Assessments Includes: Assessments from this encounter No Assessments Recorded Medical Equipment - Implanted Devices Includes: Current Devices No Medical Equipment Recorded Medications Includes: Medications discussed during this encounter and other current Medications New / Renewed during this visit ZACH CONTRERAS on 04/18/2020 Cyclobenzaprine HCl 5 MG Ora l Tablet Provider: ZACH CONTRERAS 15 day supply: 30 tablet, 1 refills Diagnosis: Muscle spasm of back 1 BID prn Pharmacy: [address], [address] - Last Documented On 0 11:26AM By ZACH CONTRERAS ; [facility] Current Medications (continue as prescribed) Hysingla ER 30 MG Oral Table t ER 24 Hour Abuse-Deterrent 06/14/2020 Provider: ZACH CONTRERAS Diagnosis: Spinal stenosis, lumbosacral region One tablet dailyfill 06/15/20 Last Documented On 1 8:29AM By ZACH CONTRERAS ; [facility] Pregabalin 100 MG Oral Capsule 02/18/2020 Provider: ZACH CONTRERAS Diagnosis: Spinal stenosis, lumbosacral region 1 CAPSULE TWO TIMES A DAY Last Documented On 0 10:33AM By ZACH [facility] ; [facility] Lyrica 75 MG Oral Capsule 12/03/2019 Provider: ZACH SNIDER Diagnosis: Other spondylosi s with radiculopathy, lumbar region 1 CAPSULE TWO TIMES A DAY Last Documented On 0 8:57AM By ZACH [facility] ; [facility] Depo-Testosterone 200MG/ML Intramuscular Solution 12/04 Provider: Diagnosis: Last Documented On 9 1:53PM By Desi SHERMAN ; [facility] Fenofibrate 54MG Oral Tablet 12/18/2018 Provider: Diagnosis: Last Documented On 9 1:53PM By Desi SHERMAN ; [facility] Metoprolol Succinate ER 100M G Oral Tablet Extended Release 24 Hour 12/18/2018 Provider: Diagnosis: Last Documented On 9 1:52PM By Desi SHERMAN ; [facility] Lexapro 20MG Oral Tablet 12/18/2018 Provider: Diagnosis: Last Documented On 9 1:52PM By Desi SHERMAN ; [facility] Flonase Allergy Relief 50MCG/ACT Nasal Suspension 12/04 Provider: Diagnosis: Last Documented On 9 1:52PM By Desi SHERMAN ; [facility] Past Medications on file Gabapentin 400 MG Oral Capsule 06/22/2020 - 07/22/2020 Provider: BLU Mosley Diagnosis: Radiculopathy, l umbar region One tablet three times a day Last Documented On 06/22/2020 6:25PM By Blu Mckeon MD ; [facility] Medications Administered Includes: Administered Medications from this encounter No Administered Medications Recorded Results Includes: Results discussed during this encounter No Results Recorded For Specified Dates History of Present Illness Includes: History of Present Illness from this encounter No History of Present Illness Recorded Social History Description Last Updated Smoker 11/02/2019 Last Documented On 0 11:08AM ; [facility] Smoking status : Current everyday smoker 05/14/2019 Last Documented On 0 11:08AM ; [facility] Medical History Includes: Medical History addressed during [...] Active Last Documented On 1 3:19PM ; [facility] Encounters Encounter Provider Location Date Check-In Time Check-Out Time Diagnosis * PHONE CALL ZACH GARCIA 04/18/2020 11:08AM 11:59PM Insurance Includes: Active Insurance Policies Plan Name Member ID Group # Subscriber Relationship Effect jim Dates 1 - [employer] [id number] IGOR KELLER Self Clinical Notes Includes: Clinical Notes from this encounter No Clinical Notes Recorded
--- OUTSIDE RECORDS SUMMARY | 2024-08-05 14:02 | XMS_ITS ---
Author Organization [facility] Address [address] [place] [address] Phone Care Team Providers Care Protective Service Specialist Name Role Phone [place] VALENZUELA, LINCOLN CAMPOVERDE MD, SINDY Primary Care Provider [phone] Plan of Treatment Instructions to patient Intervention and counseling on cessation of tobacco use : Patient recieved smoking cessation handout Last Documented On 1 3:16PM ; [facility] Intervention and counseling on cessation of tobacco use : Patient recieved smoking cessation handout Last Documented On 0 9:51AM ; [facility] Intervention and counseling on cessation of tobacco use : Patient recieved smoking cessation handout Last Documented On 0 10:54AM ; [facility] Intervention and counseling on cessation of tobacco use : Patient recieved smoking cessation handout Last Documented On 0 10:12AM ; [facility] Intervention and counseling on cessation of tobacco use : Patient recieved smoking cessation handout Last Documented On 0 9:59AM ; [facility] Intervention and counseling on cessation of tobacco use : Patient recieved smoking cessation handout Last Documented On 0 10:04AM ; [facility] Education and Decision Aids were provided during visit for: Pill Count: Patient did not bring pain medication to appointment for pill count, per policy. Advised in order to continue to safely prescribe opioids, medication must be brought to each appointment Last Documented On 1 3:23PM ; [facility] Pill Count: 0 Last Documented On 0 9:58AM ; [facility] Pill Count: eight Appropriat e Last Documented On 0 11:12AM ; [facility] Pill Count: twelve Appropria te Last Documented On 0 11:42AM ; [facility] Pill Count: twelve Appropria te Last Documented On 0 10:43AM ; [facility] Pill Count: one Not Appropri ate Last Documented On 0 10:06AM ; [facility] No Pill Count: 0 Appropriate Last Documented On 9 10:32AM ; [facility] No Pill Count: 0 Appropriate Last Documented On 9 11:08AM ; [facility] Assessments Includes: Assessments for all patient encounters Findings Encounter Date Chronic pain syndrome PAIN MANAGEMENT FO LLOW UP with ZACH L KULWINDER ANP-BC 05/17/2020 Last Documented On 1 4:23PM ; [facility] group home use of opiate analgesic PAIN M ANAGEMENT FOLLOW UP with ZACH L KULWINDER ANP-BC 05/17/2020 Last Documented On 1 4:23PM ; [facility] Lumbar spondylosis with radiculopathy PA IN MANAGEMENT FOLLOW UP with ZACH L KULWINDER ANP-BC 05/17/2020 Last Documented On 1 4:23PM ; [facility] Lumbosacral spinal stenosis PAIN MANAGEM ENT FOLLOW UP with ZACH L KULWINDER ANP-BC 05/17/2020 Last Documented On 1 4:23PM ; [facility] Myalgia PAIN MANAGEMENT FOLLOW UP with T TSERING L KULWINDER ANP-BC 05/17/2020 Last Documented On 1 4:23PM ; [facility] Chronic pain syndrome PAIN MANAGEMENT FO LLOW UP with ZACH L KULWINDER ANP-BC 02/18/2020 Last Documented On 0 10:20AM ; [facility] long term acute care registered nurse use of opiate analgesic PAIN M ANAGEMENT FOLLOW UP with ZACH L KULWINDER ANP-BC 02/18/2020 Last Documented On 0 10:20AM ; [facility] Lumbar spondylosis with radiculopathy PA IN MANAGEMENT FOLLOW UP with ZACH L KULWINDER ANP-BC 02/18/2020 Last Documented On 0 10:20AM ; [facility] Lumbosacral spinal stenosis PAIN MANAGEM ENT FOLLOW UP with ZACH L KULWINDER ANP-BC 02/18/2020 Last Documented On 0 10:20AM ; [facility] Myalgia PAIN MANAGEMENT FOLLOW UP with T TSERING L KULWINDER ANP-BC 02/18/2020 Last Documented On 0 10:20AM ; [facility] Chronic pain syndrome PAIN MANAGEMENT FO LLOW UP with ZACH L KULWINDER ANP-BC 11/02/2019 Last Documented On 0 11:21AM ; [facility] group home use of opiate analgesic PAIN M ANAGEMENT FOLLOW UP with ZACH L KULWINDER ANP-BC 11/02/2019 Last Documented On 0 11:21AM ; [facility] Lumbar spondylosis with radiculopathy PA IN MANAGEMENT FOLLOW UP with ZACH L KULWINDER ANP-BC 11/02/2019 Last Documented On 0 11:21AM ; [facility] Lumbosacral spinal stenosis PAIN MANAGEM ENT FOLLOW UP with ZACH L KULWINDER ANP-BC 11/02/2019 Last Documented On 0 11:21AM ; [facility] Myalgia PAIN MANAGEMENT FOLLOW UP with T TSERING L KULWINDER ANP-BC 11/02/2019 Last Documented On 0 11:21AM ; [facility] Chronic pain syndrome PAIN MANAGEMENT FO LLOW UP with ZACH L KULWINDER ANP-BC 08/03/2019 Last Documented On 0 11:43AM ; [facility] group home use of opiate analgesic PAIN M ANAGEMENT FOLLOW UP with ZACH L KULWINDER ANP-BC 08/03/2019 Last Documented On 0 11:43AM ; [facility] Lumbar spondylosis with radiculopathy PA IN MANAGEMENT FOLLOW UP with ZACH L KULWINDER ANP-BC 08/03/2019 Last Documented On 0 11:43AM ; [facility] Lumbosacral spinal stenosis PAIN MANAGEM ENT FOLLOW UP with ZACH L KULWINDER ANP-BC 08/03/2019 Last Documented On 0 11:43AM ; [facility] Myalgia PAIN MANAGEMENT FOLLOW UP with T TSERING L KULWINDER ANP-BC 08/03/2019 Last Documented On 0 11:43AM ; [facility] Chronic pain syndrome PAIN MANAGEMENT FO LLOW UP with ZACH L KULWINDER ANP-BC 06/04/2019 Last Documented On 0 10:44AM ; [facility] long term acute care registered nurse use of opiate analgesic PAIN M ANAGEMENT FOLLOW UP with ZACH L KULWINDER ANP-BC 06/04/2019 Last Documented On 0 10:44AM ; [facility] Lumbar spondylosis with radiculopathy PA IN MANAGEMENT FOLLOW UP with ZACH L KULWINDER ANP-BC 06/04/2019 Last Documented On 0 10:44AM ; [facility] Lumbosacral spinal stenosis PAIN MANAGEM ENT FOLLOW UP with ZACH L KULWINDER [facility] 06/04/2019 Last Documented On 0 10:44AM ; [facility] Myalgia PAIN MANAGEMENT FOLLOW UP with T TSERING L KULWINDER ANP- 06/04/2019 Last Documented On 0 10:44AM ; [facility] Chronic pain syndrome PAIN MANAGEMENT FO LLOW UP with ZACH L KULWINDER [facility] 05/14/2019 Last Documented On 0 12:49PM ; [facility] group home use of opiate analgesic PAIN M ANAGEMENT FOLLOW UP with ZACH L KULWINDER [facility] 05/14/2019 Last Documented On 0 12:49PM ; [facility] Lumbar spondylosis with radiculopathy PA IN MANAGEMENT FOLLOW UP with ZACH L KULWINDER ANP-BC 05/14/2019 Last Documented On 0 12:49PM ; [facility] Lumbosacral spinal stenosis PAIN MANAGEM ENT FOLLOW UP with ZACH L KULWINDER ANP-BC 05/14/2019 Last Documented On 0 12:49PM ; [facility] Myalgia PAIN MANAGEMENT FOLLOW UP with T TSERING L KULWINDER [facility] 05/14/2019 Last Documented On 0 12:49PM ; [facility] Chronic pain syndrome PAIN MANAGEMENT FO LLOW UP with ZACH L KULWINDER ANP-BC 04/13/2019 Last Documented On 9 9:31AM ; [facility] group home use of opiate analgesic PAIN M ANAGEMENT FOLLOW UP with ZACH L KULWINDER ANP-BC 04/13/2019 Last Documented On 9 9:31AM ; [facility] Lumbar spondylosis with radiculopathy PA IN MANAGEMENT FOLLOW UP with ZACH L KULWINDER ANP-BC 04/13/2019 Last Documented On 9 9:31AM ; [facility] Lumbosacral spinal stenosis PAIN MANAGEM ENT FOLLOW UP with ZACH L KULWINDER ANP-BC 04/13/2019 Last Documented On 9 9:31AM ; [facility] Myalgia PAIN MANAGEMENT FOLLOW UP with T TSERING L KULWINDER ANP-BC 04/13/2019 Last Documented On 9 9:31AM ; [facility] Chronic pain syndrome PAIN MANAGEMENT FO LLOW UP with ZACH L KULWINDER ANP-BC 03/23/2019 Last Documented On 9 10:38AM ; [facility] long term acute care registered nurse use of opiate analgesic PAIN M ANAGEMENT FOLLOW UP with ZACH L KULWINDER ANP-BC 03/23/2019 Last Documented On 9 10:38AM ; [facility] Lumbar spondylosis with radiculopathy PA IN MANAGEMENT FOLLOW UP with ZACH L KULWINDER ANP-BC 03/23/2019 Last Documented On 9 10:38AM ; [facility] Lumbosacral spinal stenosis PAIN MANAGEM ENT FOLLOW UP with ZACH L KULWINDER ANP-BC 03/23/2019 Last Documented On 9 10:38AM ; [facility] Myalgia PAIN MANAGEMENT FOLLOW UP with T TSERING L KULWINDER ANP-BC 03/23/2019 Last Documented On 9 10:38AM ; [facility] Chronic pain syndrome PAIN MANAGEMENT FO LLOW UP with ZACH L KULWINDER ANP-BC 02/18/2019 Last Documented On 9 11:33AM ; [facility] Lumbar spondylosis with radiculopathy PA IN MANAGEMENT FOLLOW UP with ZACH L KULWINDER ANP-BC 02/18/2019 Last Documented On 9 11:33AM ; [facility] Lumbosacral spinal stenosis PAIN MANAGEM ENT FOLLOW UP with ZACH L KULWINDER ANP-BC 02/18/2019 Last Documented On 9 11:33AM ; [facility] Myalgia PAIN MANAGEMENT FOLLOW UP with T TSERING L KULWINDER ANP-BC 02/18/2019 Last Documented On 9 11:33AM ; [facility] Chronic pain syndrome PAIN MANAGEMENT FO LLOW UP with ZACH L KULWINDER ANP-BC 01/19/2019 Last Documented On 9 11:54AM ; [facility] Lumbar radiculopathy PAIN MANAGEMENT FOL LOW UP with ZACH L KULWINDER ANP-BC 01/19/2019 Last Documented On 9 11:54AM ; [facility] Lumbar spondylosis with radiculopathy PA IN MANAGEMENT FOLLOW UP with ZACH L KULWINDER ANP-BC 01/19/2019 Last Documented On 9 11:54AM ; [facility] Lumbosacral spinal stenosis PAIN MANAGEM ENT FOLLOW UP with ZACH L KULWINDER ANP-BC 01/19/2019 Last Documented On 9 11:54AM ; [facility] Myalgia PAIN MANAGEMENT FOLLOW UP with T TSERING L KULWINDER ANP-BC 01/19/2019 Last Documented On 9 11:54AM ; [facility] Chronic pain syndrome PAIN MANAGEMENT NE W CONSULT with ZACH L KULWINDER ANP-BC 12/18/2018 Last Documented On 9 12:11PM ; [facility] Lumbar radiculopathy PAIN MANAGEMENT NEW CONSULT with ZACH L KULWINDER ANP-BC 12/18/2018 Last Documented On 9 12:11PM ; [facility] Lumbar spondylosis with radiculopathy PA IN MANAGEMENT NEW CONSULT with ZACH L KULWINDER ANP-BC 12/18/2018 Last Documented On 9 12:11PM ; [facility] Lumbosacral spinal stenosis PAIN MANAGEM ENT NEW CONSULT with ZACH MIRAMONTES [facility] 12/18/2018 Last Documented On 9 12:11PM ; [facility] Myalgia PAIN MANAGEMENT NEW CONSULT with ZACH MIRAMONTES [facility] 12/18/2018 Last Documented On 9 12:11PM ; [facility] Instructions Includes: Instructions for all patient encounters Instructions to patient Intervention and counseling on cessation of tobacco use : Patient recieved smoking cessation handout Last Documented On 1 3:16PM ; [facility] Intervention and counseling on cessation of tobacco use : Patient recieved smoking cessation handout Last Documented On 0 9:51AM ; [facility] Intervention and counseling on cessation of tobacco use : Patient recieved smoking cessation handout Last Documented On 0 10:54AM ; [facility] Intervention and counseling on cessation of tobacco use : Patient recieved smoking cessation handout Last Documented On 0 10:12AM ; [facility] Intervention and counseling on cessation of tobacco use : Patient recieved smoking cessation handout Last Documented On 0 9:59AM ; [facility] Intervention and counseling on cessation of tobacco use : Patient recieved smoking cessation handout Last Documented On 0 10:04AM ; [facility] Education and Decision Aids were provided during visit for: Pill Count: Patient did not bring pain medication to appointment for pill count, per policy. Advised in order to continue to safely prescribe opioids, medication must be brought to each appointment Last Documented On 1 3:23PM ; [facility] Pill Count: 0 Last Documented On 0 9:58AM ; [facility] Pill Count: eight Appropriat e Last Documented On 0 11:12AM ; [facility] Pill Count: twelve Appropria te Last Documented On 0 11:42AM ; [facility] Pill Count: twelve Appropria te Last Documented On 0 10:43AM ; [facility] Pill Count: one Not Appropri ate Last Documented On 0 10:06AM ; [facility] No Pill Count: 0 Appropriate Last Documented On 9 10:32AM ; [facility] No Pill Count: 0 Appropriate Last Documented On 9 11:08AM ; [facility] Medical Equipment - Implanted Devices Includes: Current and historical Devices No Medical Equipment Recorded Medications Includes: Current and historical Medications Current Medications (continue as prescribed) Hysingla ER 30 MG Oral Table t ER 24 Hour Abuse-Deterrent 06/14/2020 Provider: ZACH LY- Diagnosis: Spinal stenosis, lumbosacral region One tablet dailyfill 06/15/20 Last Documented On 1 8:29AM By ZACH LY- ; [facility] Cyclobenzaprine HCl 5 MG Ora l Tablet 04/18/2020 Provider: ZACH CONTRERAS Diagnosis: Muscle spasm of back 1 BID prn Last Documented On 0 11:26AM By ZACH CONTRERAS ; [facility] Pregabalin 100 MG Oral Capsule 02/18/2020 Provider: ZACH CONTRERAS Diagnosis: Spinal stenosis, lumbosacral region 1 CAPSULE TWO TIMES A DAY Last Documented On 0 10:33AM By ZACH CONTRERAS ; [facility] Lyrica 75 MG Oral Capsule 12/03/2019 Provider: ZACH SNIDER Diagnosis: Other spondylosi s with radiculopathy, lumbar region 1 CAPSULE TWO TIMES A DAY Last Documented On 0 8:57AM By ZACH CONTRERAS ; [facility] Depo-Testosterone 200MG/ML Intramuscular Solution 12/04 Provider: Diagnosis: Last Documented On 9 1:53PM By Desi SHERMAN ; [facility] Fenofibrate 54MG Oral Tablet 12/18/2018 Provider: Diagnosis: Last Documented On 9 1:53PM By Desi SHERMAN ; [facility] Metoprolol Succinate ER 100M G Oral Tablet Extended Release 24 Hour 12/18/2018 Provider: Diagnosis: Last Documented On 9 1:52PM By Desi SHERMAN ; [facility] Lexapro 20MG Oral Tablet 12/18/2018 Provider: Diagnosis: Last Documented On 9 1:52PM By Desi SHERMAN ; [facility] Flonase Allergy Relief 50MCG/ACT Nasal Suspension 12/04 Provider: Diagnosis: Last Documented On 9 1:52PM By Desi SHERMAN ; [facility] Past Medications on file Gabapentin 400 MG Oral Capsule 06/22/2020 - 07/22/2020 Provider: LAVELL Mosley Diagnosis: Radiculopathy, l umbar region One tablet three times a day Last Documented On 06/22/2020 6:25PM By Lavell Mckeon MD ; [facility] Gabapentin 400 MG Oral Capsule 05/25/2020 - 06/22/2020 Provider: ZACH CONTRERAS Diagnosis: Radiculopathy, l umbar region One tablet three times a day Last Documented On 06/22/2020 6:24PM By Lavell Mckeon MD ; [facility] Hysingla ER 30 MG Oral Tablet ER 24 Hour Abuse-Deterrent 05/17/2020 - 06/13/2020 Provider: ZACH CONTRERAS Diagnosis: Spinal stenosis, lumbosacral region One tablet dailyfill 04/16/20 Last Documented On 1 8:28AM By ZACH CONTRERAS ; [facility] Gabapentin 400 MG Oral Capsule 04/22/2020 - 05/25/2020 Provider: ZACH CONTRERAS Diagnosis: Radiculopathy, l umbar region One tablet three times a day Last Documented On 1 2:33PM By ZACH CONTRERAS ; [facility] Hysingla ER 30 MG Oral Tablet ER 24 Hour Abuse-Deterrent 04/13/2020 - 05/17/2020 Provider: ZACH CONTRERAS Diagnosis: Spinal stenosis, lumbosacral region One tablet dailyfill 04/16/20 Last Documented On 1 3:28PM By ZACH CONTRERAS ; [facility] Gabapentin 400 MG Oral Capsule 03/23/2020 - 04/22/2020 Provider: ZACH CONTRERAS Diagnosis: Radiculopathy, l umbar region One tablet three times a day Last Documented On 0 11:15AM By ZACH CONTRERAS ; [facility] Hysingla ER 30 MG Oral Tablet ER 24 Hour Abuse-Deterrent 03/16/2020 - 04/13/2020 Provider: ZACH CONTRERAS Diagnosis: Spinal stenosis, lumbosacral region One tablet dailyfill 03/18/20 Last Documented On 0 1:54PM By ZACH CONTRERAS ; [facility] Hysingla ER 30 MG Oral Tablet ER 24 Hour Abuse-Deterrent 02/18/2020 - 03/16/2020 Provider: ZACH CONTRERAS Diagnosis: Spinal stenosis, lumbosacral region One tablet daily Last Documented On 0 9:06AM By ZACH CONTRERAS ; [facility] Hysingla ER 30 MG Oral Tablet ER 24 Hour Abuse-Deterrent 01/08/2020 - 02/18/2020 Provider: ZACH CONTRERAS Diagnosis: Spinal stenosis, lumbosacral region One tablet daily Last Documented On 0 10:06AM By ZACH CONTRERAS ; [facility] Hysingla ER 30 MG Oral Tablet ER 24 Hour Abuse-Deterrent 12/08/2019 - 01/07/2020 Provider: ZACH CONTRERAS Diagnosis: Spinal stenosis, lumbosacral region One tablet dailyto fill 12/09/19 Last Documented On 0 9:49AM By ZACH CONTRERAS ; [facility] Hysingla ER 30 MG Oral Tablet ER 24 Hour Abuse-Deterrent 11/04/2019 - 12/08/2019 Provider: ZACH CONTRERAS Diagnosis: Spinal stenosis, lumbosacral region One tablet dailyto fill 11/10/19 Last Documented On 0 11:17AM By ZACH CONTRERAS ; [facility] Lyrica 75 MG Oral Capsule 11/02/2019 - 12/03/2019 Provider: ZACH CONTRERAS Diagnosis: Other spondylosi s with radiculopathy, lumbar region 1 CAPSULE TWO TIMES A DAY Last Documented On 0 8:49AM By ZACH CONTRERAS ; [facility] Hysingla ER 30 MG Oral Tablet ER 24 Hour Abuse-Deterrent 10/12/2019 - 11/04/2019 Provider: ZACH CONTRERAS Diagnosis: Spinal stenosis, lumbosacral region One tablet daily Last Documented On 0 3:59PM By ZACH CONTRERAS ; [facility] Hysingla ER 30 MG Oral Tablet ER 24 Hour Abuse-Deterrent 09/09/2019 - 10/12/2019 Provider: ZACH CONTRERAS Diagnosis: Spinal stenosis, lumbosacral region One tablet dailyto fill 09/12/19 Last Documented On 0 5:04PM By ZACH CONTRERAS ; [facility] Hysingla ER 30 MG Oral Tablet ER 24 Hour Abuse-Deterrent 08/13/2019 - 09/09/2019 Provider: ZACH CONTRERAS Diagnosis: Spinal stenosis, lumbosacral region One tablet daily Last Documented On 0 4:10PM By ZACH CONTRERAS ; [facility] Gabapentin 600 MG Oral Tablet 08/03/2019 - 08/03/2019 Provider: Diagnosis: Last Documented On 0 10:31AM By ZACH CONTRERAS ; [facility] Gabapentin 600 MG Oral Tablet 08/03/2019 - 11/02/2019 Provider: ZACH CONTRERAS Diagnosis: Spinal stenosis, lumbosacral region One tablet twice a day Last Documented On 0 11:16AM By ZACH CONTRERAS ; [facility] Hysingla ER 30 MG Oral Tablet ER 24 Hour Abuse-Deterrent 07/15/2019 - 08/13/2019 Provider: ZACH CONTRERAS Diagnosis: Spinal stenosis, lumbosacral region One tablet daily Last Documented On 0 2:13PM By ZACH CONTRERAS ; [facility] Hysingla ER 30 MG Oral Tablet ER 24 Hour Abuse-Deterrent 06/17/2019 - 07/15/2019 Provider: ZACH CONTRERAS Diagnosis: Spinal stenosis, lumbosacral region One tablet daily Last Documented On 0 3:09PM By ZACH CONTRERAS ; [facility] Hysingla ER 30 MG Oral Tablet ER 24 Hour Abuse-Deterrent 06/15/2019 - 06/17/2019 Provider: ZACH CONTRERAS Diagnosis: Spinal stenosis, lumbosacral region One tablet dailyto fill 06/16/19 Last Documented On 0 12:55PM By ZACH CONTRERAS ; [facility] Hysingla ER 30 MG Oral Tablet ER 24 Hour Abuse-Deterrent 05/18/2019 - 06/15/2019 Provider: ZACH CONTRERAS Diagnosis: Spinal stenosis, lumbosacral region One tablet daily Last Documented On 0 12:59PM By ZACH CONTRERAS ; [facility] Hysingla ER 30 MG Oral Tablet ER 24 Hour Abuse-Deterrent 05/14/2019 - 05/18/2019 Provider: ZACH CONTRERAS Diagnosis: Spinal stenosis, lumbosacral region One tablet daily Last Documented On 0 9:20AM By ZACH CONTRERAS ; [facility] Cyclobenzaprine HCl 5 MG Oral Tablet 05/11/2019 - 04/18/2020 Provider: ZACH CONTRERAS Diagnosis: Muscle spasm of back 1 BID prn Last Documented On 0 11:15AM By ZACH CONTRERAS ; [facility] HYDROcodone-Acetaminophen 10 -325 MG Oral Tablet 04/17/2019 - 06/04/2019 Provider: ZACH CONTRERAS Diagnosis: Other spondylosi s with radiculopathy, lumbar region 1 po TID prnto fill 03/18/19 Last Documented On 0 10:22AM By ZACH CONTRERAS ; [facility] Lyrica 150 MG Oral Capsule 04/17/2019 - 08/03/2019 Provider: ZACH CONTRERAS Diagnosis: Other spondylosi s with radiculopathy, lumbar region 1 CAPSULE TWO TIMES A DAY Last Documented On 0 10:30AM By ZACH CONTRERAS ; [facility] HYDROcodone-Acetaminophen 10 -325 MG Oral Tablet 03/17/2019 - 04/16/2019 Provider: ZACH CONTRERAS Diagnosis: Other spondylosi s with radiculopathy, lumbar region 1 po TID prnto fill 03/18/19 Last Documented On 9 10:45AM By ZACH CONTRERAS ; [facility] Lyrica 150 MG Oral Capsule 03/17/2019 - 04/16/2019 Provider: ZACH CONTRERAS Diagnosis: Other spondylosi s with radiculopathy, lumbar region 1 CAPSULE TWO TIMES A DAY Last Documented On 9 10:45AM By ZACH CONTRERAS ; [facility] HYDROcodone-Acetaminophen 10 -325 MG Oral Tablet 03/04/2019 - 03/17/2019 Provider: ZACH CONTRERAS Diagnosis: Other spondylosi s with radiculopathy, lumbar region 1 po TID prn Last Documented On 9 4:54PM By ZACH CONTRERAS ; [facility] HYDROcodone-Acetaminophen 10 -325 MG Oral Tablet 02/18/2019 - 03/03/2019 Provider: ZACH CONTRERAS Diagnosis: Other spondylosi s with radiculopathy, lumbar region 1 po TID prn Last Documented On 9 1:47PM By ZACH CONTRERAS ; [facility] Lyrica 150 MG Oral Capsule 02/18/2019 - 03/17/2019 Provider: ZACH CONTRERAS Diagnosis: Other spondylosi s with radiculopathy, lumbar region 1 CAPSULE TWO TIMES A DAY Last Documented On 9 4:54PM By ZACH CONTRERAS ; [facility] HYDROcodone-Acetaminophen 10 -325 MG Oral Tablet 01/19/2019 - 02/18/2019 Provider: ZACH CONTRERAS Diagnosis: Radiculopathy, lumbar region 1 po TID prn Last Documented On 9 11:33AM By ZACH CONTRERAS ; [facility] Lyrica 150 MG Oral Capsule 01/19/2019 - 02/18/2019 Provider: ZACH CONTRERAS Diagnosis: Radiculopathy, l umbar region 1 CAPSULE TWO TIMES A DAY Last Documented On 9 11:32AM By ZACH CONTRERAS ; [facility] HYDROcodone-Acetaminophen 10 -325 MG Oral Tablet 01/01/2019 - 01/19/2019 Provider: ZACH CONTRERAS Diagnosis: Radiculopathy, lumbar region 1 po TID prnto fill 01/05/19 Last Documented On 9 11:07AM By ZACH CONTRERAS ; [facility] HYDROcodone-Acetaminophen 10 -325MG Oral Tablet 12/22/2018 - 01/01/2019 Provider: ZACH CONTRERAS Diagnosis: Radiculopathy, lumbar region 1 po TID prn Last Documented On 9 2:33PM By ZACH CONTRERAS ; [facility] diazePAM 10MG Oral Tablet 12/18/2018 - 04/13/2019 Prov ider: Diagnosis: Last Documented On 9 10:50AM By ZACH CONTRERAS ; [facility] Gabapentin 600MG Oral Tablet 12/18/2018 - 02/18/2019 P rovider: Diagnosis: Last Documented On 9 11:28AM By ZACH CONTRERAS ; [facility] Lyrica 150MG Oral Capsule 12/18/2018 - 01/19/2019 Provider: ZACH CONTRERAS Diagnosis: Radiculopathy, l umbar region 1 CAPSULE TWO TIMES A DAY Last Documented On 9 11:08AM By ZACH CONTRERAS ; [facility] HYDROcodone-Acetaminophen 10-325MG Oral Tablet 0 12/18/2018 - 12/22/2018 Provider: Diagnosis: Last Documented On 9 12:50PM By ZACH LY- ; [facility] Medications Administered Includes: Administered Medications in patient's chart No Administered Medications Recorded Results Includes: Results from 08/06/2023 through 08/05/2024 No Results Recorded For Specified Dates History of Present Illness History of Present Illness not supported for this document type No History of Present Illness Recorded Social History Description Last Updated Current smoker 05/17/2020 Last Documented On 1 4:23PM ; [facility] Smoker 11/02/2019 Last Documented On 0 11:21AM ; [facility] Smoking status : Current everyday smoker 05/14/2019 Last Documented On 0 12:49PM ; [facility] Medical History Includes: Medical History in patient's chart Description Last Updated Reviewed and Unchanged 08/03/2019 Last Documented On 0 11:43AM ; [facility] Family History Includes: Family History in patient's chart No Family History Recorded Review of Systems Review of Systems not supported for this document type No Review of Systems Recorded Mental Status No Mental Status Recorded Functional Status No Functional Status Recorded Physical Exam Physical Exam not supported for this document type No Physical Exam Recorded Allergies Includes: Active, inactive, and resolved Allergies Substance Type Reaction Onset Date Resolved Date Statu s Lyrica Allergy Shortness of Breath / Dyspnea 05/17/2020 Active Last Documented On 1 3:19PM ; [facility] Insurance Includes: Active Insurance Policies Plan Name Member ID Group # Subscriber Relationship Effect jim Dates 1 - [employer] [id number] IGOR KELLER Self Clinical Notes Includes: Signed Clinical Notes starting from 05/25/2022 No Clinical Notes Recorded
== END 2024-08-05 12:51 | disposition home or self-care (01) ==
LOC: CHSLAB 12:50
PROVIDERS: PCP Nurse Practitioner Family; Visit Provider Nurse Practitioner Family
DX: L08.9 Local infection of the skin and subcutaneous tissue, unspecified (principal)
CPT/HCPCS: 87070; 87075; 87181; 87205

== ENCOUNTER 2024-08-07 07:26 | Outpatient (CLI) | payer OTHER, SELFPAY ==
--- OUTSIDE RECORDS SUMMARY | 2024-08-07 07:29 | XMS_ITS | Encounter Summary ---
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 Gender Identity Not on file Sexual Orientation Not on file documented as of this encounter Plan of Treatment Upcoming Encounters Date Type Department Care Team (Late st Contact Info) Description 11/26/2024 9:30 AM CDT [facility] [id number] [place] [phone] Una Zurita MD [address] [place], [place] [id number] documented as of this encounter Visit Diagnoses Not on filedocumented in this encounter Care Teams Content Analyst Relationship Specialty Start Date End Date Zoya Tanner FNP [address] [place] [address] PCP - General NURSE PRACTITIONER 08/31/21 Una Zurita MD [address] [place] [address] [place] Poultry Scientist CARDIOVASCULAR DISEASE 10/03/22 documented as of this encounter
--- OUTSIDE RECORDS SUMMARY | 2024-08-07 07:29 | XMS_ITS | Clinical Summary ---
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 Gender Identity Not on file Sexual Orientation [...] Description 11/26/2024 9:30 AM CDT [facility] [address] [place] [address] Una Zurita MD [address] [place] [id number] Health Maintenance Due Date Last Done [...] patient's age to complete this topic Insurance [employer] Advance Directives * Full Code (Latest Code Status on File) Date Activated Date Inactivated Comments 09/01/2021 9:43 AM 09/01/2021 7:23 PM Care Teams Household Appliance Installer Relationship Specialty Start Date End Date Zoya Tanner FNP [address] [place] [address] PCP - General NURSE PRACTITIONER 08/31/21 Una Zurita MD [address] [place] [address] Maria Stein Computer Repair Technician CARDIOVASCULAR DISEASE 10/03/22
--- OUTSIDE RECORDS SUMMARY | 2024-08-07 07:29 | XMS_ITS | Clinical Summary ---
Author Organization [facility] Address [address] [place] [address] Phone Care Team Providers Care Gallery Or Museum Guide Name Role Phone [place] VALENZUELA, LINCOLN CAMPOVERDE MD, SINDY Primary Care Provider [phone] Reason for Visit and Chief Complaint * [...] On 1 8:29AM By ZACH LY-BC ; [facility] Cyclobenzaprine HCl 5 MG Ora l Tablet 04/18/2020 Provider: ZACH MIRAMONTES ANP-BC Diagnosis: Muscle spasm of back 1 BID prn Last Documented On 0 11:26AM By ZACH LY-BC ; [facility] Pregabalin 100 MG Oral Capsule 02/18/2020 Provider: ZACH CONTRERAS Diagnosis: Spinal stenosis, lumbosacral region 1 CAPSULE TWO TIMES A DAY Last Documented On 0 10:33AM By ZACH LY-BC ; [facility] Lyrica 75 MG Oral Capsule 12/03/2019 Provider: ZACH MIRAMONTES ANP TYLOR Diagnosis: Other spondylosi s with radiculopathy, lumbar region 1 CAPSULE TWO TIMES A DAY Last Documented On 0 8:57AM By [facility] ; [facility] Depo-Testosterone 200MG/ML Intramuscular Solution 12/04 Provider: Diagnosis: Last Documented On 9 1:53PM By Desi SHERMAN ; [facility] Fenofibrate 54MG Oral Tablet 12/18/2018 Provider: Diagnosis: Last Documented On 9 1:53PM By Desi SHERMAN ; [facility] Metoprolol Succinate ER 100M G Oral Tablet Extended Release 24 Hour 12/18/2018 Provider: Diagnosis: Last Documented On 9 1:52PM By Desi SHERMAN ; [facility] Lexapro 20MG Oral Tablet 12/18/2018 Provider: Diagnosis: Last Documented On 9 1:52PM By Desi SHERMAN ; [facility] Flonase Allergy Relief 50MCG/ACT Nasal Suspension 12/04 Provider: Diagnosis: Last Documented On 9 1:52PM By Desi SHERMAN ; [facility] Past Medications on file Gabapentin 400 MG Oral Capsule 06/22/2020 - 07/22/2020 Provider: LAVELL Mosley Diagnosis: Radiculopathy, l umbar region One tablet three times a day Last Documented On 06/22/2020 6:25PM By Lavell Mckeon MD ; [facility] Medications Administered Includes: Administered Medications from this encounter No Administered Medications Recorded Results Includes: Results discussed during this encounter No Results Recorded For Specified Dates History of Present Illness Includes: History of Present Illness from this encounter No History of Present Illness Recorded Social History Description Last Updated Current smoker 05/17/2020 Last Documented On 1 1:31PM ; [facility] Smoker 11/02/2019 Last Documented On 1 1:31PM ; [facility] Smoking status : Current everyday smoker 05/14/2019 Last Documented On 1 1:31PM ; [facility] Medical History Includes: Medical History [...] 05/17/2020 Active Last Documented On 3:19PM ; [facility] Encounters Encounter Provider Location Date Check-In Time Check-Out Time Diagnosis * PHONE CALL ZACH LY- 07/01/2020 1:31PM 11:59PM Insurance Includes: Active Insurance Policies Plan Name Member ID Group # Subscriber Relationship Effect jim Dates 1 - [employer] [id number] IGOR KELLER Self Clinical Notes Includes: Clinical Notes from this encounter No Clinical Notes Recorded
--- OUTSIDE RECORDS SUMMARY | 2024-08-07 07:29 | XMS_ITS ---
Author Organization [facility] Address [address] [place] [address] Phone Care Team Providers Care Transformation Manager Name Role Phone [place] VALENZUELA, LINCOLN CAMPOVERDE MD, SINDY Primary Care Provider [phone] Plan of Treatment Instructions to patient Intervention and counseling on cessation of tobacco use : Patient recieved smoking cessation handout Last Documented On 1 3:16PM ; [facility] Intervention and counseling on cessation of tobacco use : Patient recieved smoking cessation handout Last Documented On 0 9:51AM ; [facility] Intervention and counseling on cessation of tobacco use : Patient recieved smoking cessation handout Last Documented On 0 10:54AM ; [facility] Intervention and counseling on cessation of tobacco use : Patient recieved smoking cessation handout Last Documented On 0 10:12AM ; [facility] Intervention and counseling on cessation of tobacco use : Patient recieved smoking cessation handout Last Documented On 0 9:59AM ; [facility] Intervention and counseling on cessation of tobacco use : Patient recieved smoking cessation handout Last Documented On 0 10:04AM ; [facility] Education and Decision Aids were provided during visit for: Pill Count: Patient did not bring pain medication to appointment for pill count, per policy. Advised in order to continue to safely prescribe opioids, medication must be brought to each appointment Last Documented On 1 3:23PM ; [facility] Pill Count: 0 Last Documented On 0 9:58AM ; [facility] Pill Count: eight Appropriat e Last Documented On 0 11:12AM ; [facility] Pill Count: twelve Appropria te Last Documented On 0 11:42AM ; [facility] Pill Count: twelve Appropria te Last Documented On 0 10:43AM ; [facility] Pill Count: one Not Appropri ate Last Documented On 0 10:06AM ; [facility] No Pill Count: 0 Appropriate Last Documented On 9 10:32AM ; [facility] No Pill Count: 0 Appropriate Last Documented On 9 11:08AM ; [facility] Assessments Includes: Assessments for all patient encounters Findings Encounter Date Chronic pain syndrome PAIN MANAGEMENT FO LLOW UP with ZACH L KULWINDER ANP-BC 05/17/2020 Last Documented On 1 4:23PM ; [facility] retirement use of opiate analgesic PAIN M ANAGEMENT FOLLOW UP with ZACH L KULWINDER ANP-BC 05/17/2020 Last Documented On 1 4:23PM ; [facility] Lumbar spondylosis with radiculopathy PA IN MANAGEMENT FOLLOW UP with ZACH L KULWIDNER ANP-BC 05/17/2020 Last Documented On 1 4:23PM ; [facility] Lumbosacral spinal stenosis PAIN MANAGEM ENT FOLLOW UP with ZACH L KULWINDER ANP-BC 05/17/2020 Last Documented On 1 4:23PM ; [facility] Myalgia PAIN MANAGEMENT FOLLOW UP with T TSERING L KULWINDER ANP-BC 05/17/2020 Last Documented On 1 4:23PM ; [facility] Chronic pain syndrome PAIN MANAGEMENT FO LLOW UP with ZACH L KULWINDER ANP-BC 02/18/2020 Last Documented On 0 10:20AM ; [facility] 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 PAIN M ANAGEMENT FOLLOW UP with ZACH L KULWINDER ANP-BC 02/18/2020 Last Documented On 0 10:20AM ; [facility] Lumbar spondylosis with radiculopathy PA IN MANAGEMENT FOLLOW UP with ZACH L KULWINDER ANP-BC 02/18/2020 Last Documented On 0 10:20AM ; [facility] Lumbosacral spinal stenosis PAIN MANAGEM ENT FOLLOW UP with ZACH L KULWINDER ANP-BC 02/18/2020 Last Documented On 0 10:20AM ; [facility] Myalgia PAIN MANAGEMENT FOLLOW UP with T TSERING L KULWINDER ANP-BC 02/18/2020 Last Documented On 0 10:20AM ; [facility] Chronic pain syndrome PAIN MANAGEMENT FO LLOW UP with ZACH L KULWINDER ANP-BC 11/02/2019 Last Documented On 0 11:21AM ; [facility] retirement use of opiate analgesic PAIN M ANAGEMENT FOLLOW UP with ZACH L KULWINDER ANP-BC 11/02/2019 Last Documented On 0 11:21AM ; [facility] Lumbar spondylosis with radiculopathy PA IN MANAGEMENT FOLLOW UP with ZACH L KULWINDER ANP-BC 11/02/2019 Last Documented On 0 11:21AM ; [facility] Lumbosacral spinal stenosis PAIN MANAGEM ENT FOLLOW UP with ZACH L KULWINDER ANP-BC 11/02/2019 Last Documented On 0 11:21AM ; [facility] Myalgia PAIN MANAGEMENT FOLLOW UP with T TSERING L KULWINDER ANP-BC 11/02/2019 Last Documented On 0 11:21AM ; [facility] Chronic pain syndrome PAIN MANAGEMENT FO LLOW UP with ZACH L KULWINDER ANP-BC 08/03/2019 Last Documented On 0 11:43AM ; [facility] retirement use of opiate analgesic PAIN M ANAGEMENT FOLLOW UP with ZACH L KULWINDER ANP-BC 08/03/2019 Last Documented On 0 11:43AM ; [facility] Lumbar spondylosis with radiculopathy PA IN MANAGEMENT FOLLOW UP with ZACH L KULWINDER ANP-BC 08/03/2019 Last Documented On 0 11:43AM ; [facility] Lumbosacral spinal stenosis PAIN MANAGEM ENT FOLLOW UP with ZACH L KULWINDER ANP-BC 08/03/2019 Last Documented On 0 11:43AM ; [facility] Myalgia PAIN MANAGEMENT FOLLOW UP with T TSERING L KULWINDER ANP-BC 08/03/2019 Last Documented On 0 11:43AM ; [facility] Chronic pain syndrome PAIN MANAGEMENT FO LLOW UP with ZACH L KULWINDER ANP-BC 06/04/2019 Last Documented On 0 10:44AM ; [facility] 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 PAIN M ANAGEMENT FOLLOW UP with ZACH L KULWINDER ANP-BC 06/04/2019 Last Documented On 0 10:44AM ; [facility] Lumbar spondylosis with radiculopathy PA IN MANAGEMENT FOLLOW UP with ZACH L KULWINDER ANP-BC 06/04/2019 Last Documented On 0 10:44AM ; [facility] Lumbosacral spinal stenosis PAIN MANAGEM ENT [facility] 06/04/2019 Last Documented On 0 10:44AM ; [facility] Myalgia PAIN MANAGEMENT FOLLOW UP with T TSERING L KULWINDER ANP- 06/04/2019 Last Documented On 0 10:44AM ; [facility] Chronic pain syndrome PAIN MANAGEMENT FO LLOW UP [facility] 05/14/2019 Last Documented On 0 12:49PM ; [facility] retirement use of opiate analgesic PAIN M ANAGEMENT FOLLOW UP [facility] 05/14/2019 Last Documented On 0 12:49PM ; [facility] Lumbar spondylosis with radiculopathy PA IN MANAGEMENT FOLLOW UP with ZACH L KULWINDER ANP-BC 05/14/2019 Last Documented On 0 12:49PM ; [facility] Lumbosacral spinal stenosis PAIN MANAGEM ENT FOLLOW UP with ZACH L KULWINDER ANP-BC 05/14/2019 Last Documented On 0 12:49PM ; [facility] Myalgia PAIN MANAGEMENT FOLLOW UP with T TSERING L KULWINDER [facility] 05/14/2019 Last Documented On 0 12:49PM ; [facility] Chronic pain syndrome PAIN MANAGEMENT FO LLOW UP with ZACH L KULWINDER ANP-BC 04/13/2019 Last Documented On 9 9:31AM ; [facility] retirement use of opiate analgesic PAIN M ANAGEMENT FOLLOW UP with ZACH L KULWINDER ANP-BC 04/13/2019 Last Documented On 9 9:31AM ; [facility] Lumbar spondylosis with radiculopathy PA IN MANAGEMENT FOLLOW UP with ZACH L KULWINDER ANP-BC 04/13/2019 Last Documented On 9 9:31AM ; [facility] Lumbosacral spinal stenosis PAIN MANAGEM ENT FOLLOW UP with ZACH L KULWINDER ANP-BC 04/13/2019 Last Documented On 9 9:31AM ; [facility] Myalgia PAIN MANAGEMENT FOLLOW UP with T TSERING L KULWINDER ANP-BC 04/13/2019 Last Documented On 9 9:31AM ; [facility] Chronic pain syndrome PAIN MANAGEMENT FO LLOW UP with ZACH L KULWINDER ANP-BC 03/23/2019 Last Documented On 9 10:38AM ; [facility] 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 PAIN M ANAGEMENT FOLLOW UP with ZACH L KULWINDER ANP-BC 03/23/2019 Last Documented On 9 10:38AM ; [facility] Lumbar spondylosis with radiculopathy PA IN MANAGEMENT FOLLOW UP with ZACH L KULWINDER ANP-BC 03/23/2019 Last Documented On 9 10:38AM ; [facility] Lumbosacral spinal stenosis PAIN MANAGEM ENT FOLLOW UP with ZACH L KULWINDER ANP-BC 03/23/2019 Last Documented On 9 10:38AM ; [facility] Myalgia PAIN MANAGEMENT FOLLOW UP with T TSERING L KULWINDER ANP-BC 03/23/2019 Last Documented On 9 10:38AM ; [facility] Chronic pain syndrome PAIN MANAGEMENT FO LLOW UP with ZACH L KULWINDER ANP-BC 02/18/2019 Last Documented On 9 11:33AM ; [facility] Lumbar spondylosis with radiculopathy PA IN MANAGEMENT FOLLOW UP with ZACH L KULWINDER ANP-BC 02/18/2019 Last Documented On 9 11:33AM ; [facility] Lumbosacral spinal stenosis PAIN MANAGEM ENT FOLLOW UP with ZACH L KULWINDER ANP-BC 02/18/2019 Last Documented On 9 11:33AM ; [facility] Myalgia PAIN MANAGEMENT FOLLOW UP with T TSERING L KULWINDER ANP-BC 02/18/2019 Last Documented On 9 11:33AM ; [facility] Chronic pain syndrome PAIN MANAGEMENT FO LLOW UP with ZACH L KULWINDER ANP-BC 01/19/2019 Last Documented On 9 11:54AM ; [facility] Lumbar radiculopathy PAIN MANAGEMENT FOL LOW UP with ZACH L KULWINDER ANP-BC 01/19/2019 Last Documented On 9 11:54AM ; [facility] Lumbar spondylosis with radiculopathy PA IN MANAGEMENT FOLLOW UP with ZACH L KULWINDER ANP-BC 01/19/2019 Last Documented On 9 11:54AM ; [facility] Lumbosacral spinal stenosis PAIN MANAGEM ENT FOLLOW UP with ZACH L KULWINDER ANP-BC 01/19/2019 Last Documented On 9 11:54AM ; [facility] Myalgia PAIN MANAGEMENT FOLLOW UP with T TSERING L KULWINDER ANP-BC 01/19/2019 Last Documented On 9 11:54AM ; [facility] Chronic pain syndrome PAIN MANAGEMENT NE W CONSULT with ZACH L KULWINDER ANP-BC 12/18/2018 Last Documented On 9 12:11PM ; [facility] Lumbar radiculopathy PAIN MANAGEMENT NEW CONSULT with ZACH L KULWINDER ANP-BC 12/18/2018 Last Documented On 9 12:11PM ; [facility] Lumbar spondylosis with radiculopathy PA IN MANAGEMENT NEW CONSULT with ZACH L KULWINDER ANP-BC 12/18/2018 Last Documented On 9 12:11PM ; [facility] Lumbosacral spinal stenosis PAIN MANAGEM ENT NEW CONSULT with ZACH MIRAMONTES [facility] 12/18/2018 Last Documented On 9 12:11PM ; [facility] Myalgia PAIN MANAGEMENT NEW CONSULT with ZACH MIRAMONTES [facility] 12/18/2018 Last Documented On 9 12:11PM ; [facility] Instructions Includes: Instructions for all patient encounters Instructions to patient Intervention and counseling on cessation of tobacco use : Patient recieved smoking cessation handout Last Documented On 1 3:16PM ; [facility] Intervention and counseling on cessation of tobacco use : Patient recieved smoking cessation handout Last Documented On 0 9:51AM ; [facility] Intervention and counseling on cessation of tobacco use : Patient recieved smoking cessation handout Last Documented On 0 10:54AM ; [facility] Intervention and counseling on cessation of tobacco use : Patient recieved smoking cessation handout Last Documented On 0 10:12AM ; [facility] Intervention and counseling on cessation of tobacco use : Patient recieved smoking cessation handout Last Documented On 0 9:59AM ; [facility] Intervention and counseling on cessation of tobacco use : Patient recieved smoking cessation handout Last Documented On 0 10:04AM ; [facility] Education and Decision Aids were provided during visit for: Pill Count: Patient did not bring pain medication to appointment for pill count, per policy. Advised in order to continue to safely prescribe opioids, medication must be brought to each appointment Last Documented On 1 3:23PM ; [facility] Pill Count: 0 Last Documented On 0 9:58AM ; [facility] Pill Count: eight Appropriat e Last Documented On 0 11:12AM ; [facility] Pill Count: twelve Appropria te Last Documented On 0 11:42AM ; [facility] Pill Count: twelve Appropria te Last Documented On 0 10:43AM ; [facility] Pill Count: one Not Appropri ate Last Documented On 0 10:06AM ; [facility] No Pill Count: 0 Appropriate Last Documented On 9 10:32AM ; [facility] No Pill Count: 0 Appropriate Last Documented On 9 11:08AM ; [facility] Medical Equipment - Implanted Devices Includes: Current and historical Devices No Medical Equipment Recorded Medications Includes: Current and historical Medications Current Medications (continue as prescribed) Hysingla ER 30 MG Oral Table t ER 24 Hour Abuse-Deterrent 06/14/2020 Provider: ZACH LY- Diagnosis: Spinal stenosis, lumbosacral region One tablet dailyfill 06/15/20 Last Documented On 1 8:29AM By ZACH LY- ; [facility] Cyclobenzaprine HCl 5 MG Ora l Tablet 04/18/2020 Provider: ZACH CONTRERAS Diagnosis: Muscle spasm of back 1 BID prn Last Documented On 0 11:26AM By ZACH CONTRERAS ; [facility] Pregabalin 100 MG Oral Capsule 02/18/2020 Provider: ZACH CONTRERAS Diagnosis: Spinal stenosis, lumbosacral region 1 CAPSULE TWO TIMES A DAY Last Documented On 0 10:33AM By ZACH CONTRERAS ; [facility] Lyrica 75 MG Oral Capsule 12/03/2019 Provider: ZACH SNIDER Diagnosis: Other spondylosi s with radiculopathy, lumbar region 1 CAPSULE TWO TIMES A DAY Last Documented On 0 8:57AM By ZACH CONTRERAS ; [facility] Depo-Testosterone 200MG/ML Intramuscular Solution 12/04 Provider: Diagnosis: Last Documented On 9 1:53PM By Desi SHERMAN ; [facility] Fenofibrate 54MG Oral Tablet 12/18/2018 Provider: Diagnosis: Last Documented On 9 1:53PM By Desi SHERMAN ; [facility] Metoprolol Succinate ER 100M G Oral Tablet Extended Release 24 Hour 12/18/2018 Provider: Diagnosis: Last Documented On 9 1:52PM By Desi SHERMAN ; [facility] Lexapro 20MG Oral Tablet 12/18/2018 Provider: Diagnosis: Last Documented On 9 1:52PM By Desi SHERMAN ; [facility] Flonase Allergy Relief 50MCG/ACT Nasal Suspension 12/04 Provider: Diagnosis: Last Documented On 9 1:52PM By Desi SHERMAN ; [facility] Past Medications on file Gabapentin 400 MG Oral Capsule 06/22/2020 - 07/22/2020 Provider: LAVELL Mosley Diagnosis: Radiculopathy, l umbar region One tablet three times a day Last Documented On 06/22/2020 6:25PM By Lavell Mckeon MD ; [facility] Gabapentin 400 MG Oral Capsule 05/25/2020 - 06/22/2020 Provider: ZACH CONTRERAS Diagnosis: Radiculopathy, l umbar region One tablet three times a day Last Documented On 06/22/2020 6:24PM By Lavell Mckeon MD ; [facility] Hysingla ER 30 MG Oral Tablet ER 24 Hour Abuse-Deterrent 05/17/2020 - 06/13/2020 Provider: ZACH CONTRERAS Diagnosis: Spinal stenosis, lumbosacral region One tablet dailyfill 04/16/20 Last Documented On 1 8:28AM By ZACH CONTRERAS ; [facility] Gabapentin 400 MG Oral Capsule 04/22/2020 - 05/25/2020 Provider: ZACH CONTRERAS Diagnosis: Radiculopathy, l umbar region One tablet three times a day Last Documented On 1 2:33PM By ZACH CONTRERAS ; [facility] Hysingla ER 30 MG Oral Tablet ER 24 Hour Abuse-Deterrent 04/13/2020 - 05/17/2020 Provider: ZACH CONTRERAS Diagnosis: Spinal stenosis, lumbosacral region One tablet dailyfill 04/16/20 Last Documented On 1 3:28PM By ZACH CONTRERAS ; [facility] Gabapentin 400 MG Oral Capsule 03/23/2020 - 04/22/2020 Provider: ZACH CONTRERAS Diagnosis: Radiculopathy, l umbar region One tablet three times a day Last Documented On 0 11:15AM By ZACH CONTRERAS ; [facility] Hysingla ER 30 MG Oral Tablet ER 24 Hour Abuse-Deterrent 03/16/2020 - 04/13/2020 Provider: ZACH CONTRERAS Diagnosis: Spinal stenosis, lumbosacral region One tablet dailyfill 03/18/20 Last Documented On 0 1:54PM By ZACH CONTRERAS ; [facility] Hysingla ER 30 MG Oral Tablet ER 24 Hour Abuse-Deterrent 02/18/2020 - 03/16/2020 Provider: ZACH CONTRERAS Diagnosis: Spinal stenosis, lumbosacral region One tablet daily Last Documented On 0 9:06AM By ZACH CONTRERAS ; [facility] Hysingla ER 30 MG Oral Tablet ER 24 Hour Abuse-Deterrent 01/08/2020 - 02/18/2020 Provider: ZACH CONTRERAS Diagnosis: Spinal stenosis, lumbosacral region One tablet daily Last Documented On 0 10:06AM By ZACH CONTRERAS ; [facility] Hysingla ER 30 MG Oral Tablet ER 24 Hour Abuse-Deterrent 12/08/2019 - 01/07/2020 Provider: ZACH CONTRERAS Diagnosis: Spinal stenosis, lumbosacral region One tablet dailyto fill 12/09/19 Last Documented On 0 9:49AM By ZACH CONTRERAS ; [facility] Hysingla ER 30 MG Oral Tablet ER 24 Hour Abuse-Deterrent 11/04/2019 - 12/08/2019 Provider: ZACH CONTRERAS Diagnosis: Spinal stenosis, lumbosacral region One tablet dailyto fill 11/10/19 Last Documented On 0 11:17AM By ZACH CONTRERAS ; [facility] Lyrica 75 MG Oral Capsule 11/02/2019 - 12/03/2019 Provider: ZACH CONTRERAS Diagnosis: Other spondylosi s with radiculopathy, lumbar region 1 CAPSULE TWO TIMES A DAY Last Documented On 0 8:49AM By ZACH CONTRERAS ; [facility] Hysingla ER 30 MG Oral Tablet ER 24 Hour Abuse-Deterrent 10/12/2019 - 11/04/2019 Provider: ZACH CONTRERAS Diagnosis: Spinal stenosis, lumbosacral region One tablet daily Last Documented On 0 3:59PM By ZACH CONTRERAS ; [facility] Hysingla ER 30 MG Oral Tablet ER 24 Hour Abuse-Deterrent 09/09/2019 - 10/12/2019 Provider: ZACH CONTRERAS Diagnosis: Spinal stenosis, lumbosacral region One tablet dailyto fill 09/12/19 Last Documented On 0 5:04PM By ZACH CONTRERAS ; [facility] Hysingla ER 30 MG Oral Tablet ER 24 Hour Abuse-Deterrent 08/13/2019 - 09/09/2019 Provider: ZACH CONTRERAS Diagnosis: Spinal stenosis, lumbosacral region One tablet daily Last Documented On 0 4:10PM By ZACH CONTRERAS ; [facility] Gabapentin 600 MG Oral Tablet 08/03/2019 - 08/03/2019 Provider: Diagnosis: Last Documented On 0 10:31AM By ZACH CONTRERAS ; [facility] Gabapentin 600 MG Oral Tablet 08/03/2019 - 11/02/2019 Provider: ZACH CONTRERAS Diagnosis: Spinal stenosis, lumbosacral region One tablet twice a day Last Documented On 0 11:16AM By ZACH CONTRERAS ; [facility] Hysingla ER 30 MG Oral Tablet ER 24 Hour Abuse-Deterrent 07/15/2019 - 08/13/2019 Provider: ZACH CONTRERAS Diagnosis: Spinal stenosis, lumbosacral region One tablet daily Last Documented On 0 2:13PM By ZACH CONTRERAS ; [facility] Hysingla ER 30 MG Oral Tablet ER 24 Hour Abuse-Deterrent 06/17/2019 - 07/15/2019 Provider: ZACH CONTRERAS Diagnosis: Spinal stenosis, lumbosacral region One tablet daily Last Documented On 0 3:09PM By ZACH CONTRERAS ; [facility] Hysingla ER 30 MG Oral Tablet ER 24 Hour Abuse-Deterrent 06/15/2019 - 06/17/2019 Provider: ZACH CONTRERAS Diagnosis: Spinal stenosis, lumbosacral region One tablet dailyto fill 06/16/19 Last Documented On 0 12:55PM By ZACH CONTRERAS ; [facility] Hysingla ER 30 MG Oral Tablet ER 24 Hour Abuse-Deterrent 05/18/2019 - 06/15/2019 Provider: ZACH CONTRERAS Diagnosis: Spinal stenosis, lumbosacral region One tablet daily Last Documented On 0 12:59PM By ZACH CONTRERAS ; [facility] Hysingla ER 30 MG Oral Tablet ER 24 Hour Abuse-Deterrent 05/14/2019 - 05/18/2019 Provider: ZACH CONTRERAS Diagnosis: Spinal stenosis, lumbosacral region One tablet daily Last Documented On 0 9:20AM By ZACH CONTRERAS ; [facility] Cyclobenzaprine HCl 5 MG Oral Tablet 05/11/2019 - 04/18/2020 Provider: ZACH CONTRERAS Diagnosis: Muscle spasm of back 1 BID prn Last Documented On 0 11:15AM By ZACH CONTRERAS ; [facility] HYDROcodone-Acetaminophen 10 -325 MG Oral Tablet 04/17/2019 - 06/04/2019 Provider: ZACH CONTRERAS Diagnosis: Other spondylosi s with radiculopathy, lumbar region 1 po TID prnto fill 03/18/19 Last Documented On 0 10:22AM By ZACH CONTRERAS ; [facility] Lyrica 150 MG Oral Capsule 04/17/2019 - 08/03/2019 Provider: ZACH CONTRERAS Diagnosis: Other spondylosi s with radiculopathy, lumbar region 1 CAPSULE TWO TIMES A DAY Last Documented On 0 10:30AM By ZACH CONTRERAS ; [facility] HYDROcodone-Acetaminophen 10 -325 MG Oral Tablet 03/17/2019 - 04/16/2019 Provider: ZACH CONTRERAS Diagnosis: Other spondylosi s with radiculopathy, lumbar region 1 po TID prnto fill 03/18/19 Last Documented On 9 10:45AM By ZACH CONTRERAS ; [facility] Lyrica 150 MG Oral Capsule 03/17/2019 - 04/16/2019 Provider: ZACH CONTRERAS Diagnosis: Other spondylosi s with radiculopathy, lumbar region 1 CAPSULE TWO TIMES A DAY Last Documented On 9 10:45AM By ZACH CONTRERAS ; [facility] HYDROcodone-Acetaminophen 10 -325 MG Oral Tablet 03/04/2019 - 03/17/2019 Provider: ZACH CONTRERAS Diagnosis: Other spondylosi s with radiculopathy, lumbar region 1 po TID prn Last Documented On 9 4:54PM By ZACH CONTRERAS ; [facility] HYDROcodone-Acetaminophen 10 -325 MG Oral Tablet 02/18/2019 - 03/03/2019 Provider: ZACH CONTRERAS Diagnosis: Other spondylosi s with radiculopathy, lumbar region 1 po TID prn Last Documented On 9 1:47PM By ZACH CONTRERAS ; [facility] Lyrica 150 MG Oral Capsule 02/18/2019 - 03/17/2019 Provider: ZACH CONTRERAS Diagnosis: Other spondylosi s with radiculopathy, lumbar region 1 CAPSULE TWO TIMES A DAY Last Documented On 9 4:54PM By ZACH CONTRERAS ; [facility] HYDROcodone-Acetaminophen 10 -325 MG Oral Tablet 01/19/2019 - 02/18/2019 Provider: ZACH CONTRERAS Diagnosis: Radiculopathy, lumbar region 1 po TID prn Last Documented On 9 11:33AM By ZACH CONTRERAS ; [facility] Lyrica 150 MG Oral Capsule 01/19/2019 - 02/18/2019 Provider: ZACH CONTRERAS Diagnosis: Radiculopathy, l umbar region 1 CAPSULE TWO TIMES A DAY Last Documented On 9 11:32AM By ZACH CONTRERAS ; [facility] HYDROcodone-Acetaminophen 10 -325 MG Oral Tablet 01/01/2019 - 01/19/2019 Provider: ZACH CONTRERAS Diagnosis: Radiculopathy, lumbar region 1 po TID prnto fill 01/05/19 Last Documented On 9 11:07AM By ZACH CONTRERAS ; [facility] HYDROcodone-Acetaminophen 10 -325MG Oral Tablet 12/22/2018 - 01/01/2019 Provider: ZACH CONTRERAS Diagnosis: Radiculopathy, lumbar region 1 po TID prn Last Documented On 9 2:33PM By ZACH CONTRERAS ; [facility] diazePAM 10MG Oral Tablet 12/18/2018 - 04/13/2019 Prov ider: Diagnosis: Last Documented On 9 10:50AM By ZACH CONTRERAS ; [facility] Gabapentin 600MG Oral Tablet 12/18/2018 - 02/18/2019 P rovider: Diagnosis: Last Documented On 9 11:28AM By ZACH CONTRERAS ; [facility] Lyrica 150MG Oral Capsule 12/18/2018 - 01/19/2019 Provider: ZACH CONTRERAS Diagnosis: Radiculopathy, l umbar region 1 CAPSULE TWO TIMES A DAY Last Documented On 9 11:08AM By ZACH CONTRERAS ; [facility] HYDROcodone-Acetaminophen 10-325MG Oral Tablet 0 12/18/2018 - 12/22/2018 Provider: Diagnosis: Last Documented On 9 12:50PM By ZACH LY- ; [facility] Medications Administered Includes: Administered Medications in patient's chart No Administered Medications Recorded Results Includes: Results from 08/08/2023 through 08/07/2024 No Results Recorded For Specified Dates History of Present Illness History of Present Illness not supported for this document type No History of Present Illness Recorded Social History Description Last Updated Current smoker 05/17/2020 Last Documented On 1 4:23PM ; [facility] Smoker 11/02/2019 Last Documented On 0 11:21AM ; [facility] Smoking status : Current everyday smoker 05/14/2019 Last Documented On 0 12:49PM ; [facility] Medical History Includes: Medical History in patient's chart Description Last Updated Reviewed and Unchanged 08/03/2019 Last Documented On 0 11:43AM ; [facility] Family History Includes: Family History in [...] Active Last Documented On 1 3:19PM ; [facility] Insurance Includes: Active Insurance Policies Plan Name Member ID Group # Subscriber Relationship Effect jim Dates 1 - [employer] [id number] IGOR KELLER Self Clinical Notes Includes: Signed Clinical Notes starting from 05/25/2022 No Clinical Notes Recorded
--- OUTSIDE RECORDS SUMMARY | 2024-08-07 07:29 | XMS_ITS | Clinical Summary ---
Author Organization [facility] Address [address] [place] [address] Phone Care Team Providers Care Motor Vehicle Field Representative Name Role Phone OH VALENZUELA, LINCOLN CAMPOVERDE MD, SINDY Primary Care Provider [phone] Reason for Visit and Chief Complaint RX [...] On 1 8:29AM By ZACH LY-BC ; [facility] Cyclobenzaprine HCl 5 MG Ora l Tablet 04/18/2020 Provider: ZACH MIRAMONTES ANP-BC Diagnosis: Muscle spasm of back 1 BID prn Last Documented On 0 11:26AM By ZACH LY-BC ; [facility] Pregabalin 100 MG Oral Capsule 02/18/2020 Provider: ZACH CONTRERAS Diagnosis: Spinal stenosis, lumbosacral region 1 CAPSULE TWO TIMES A DAY Last Documented On 0 10:33AM By ZACH LY-BC ; [facility] Lyrica 75 MG Oral Capsule 12/03/2019 Provider: ZACH MIRAMONTES ANP FlaviaBC Diagnosis: Other spondylosi s with radiculopathy, lumbar region 1 CAPSULE TWO TIMES A DAY Last Documented On 0 8:57AM By ZACH MIRAMONTES [facility] ; [facility] Depo-Testosterone 200MG/ML Intramuscular Solution 12/04 Provider: Diagnosis: Last Documented On 9 1:53PM By Desi Lopez Marilee ; [facility] Fenofibrate 54MG Oral Tablet 12/18/2018 Provider: Diagnosis: Last Documented On 9 1:53PM By Desi SHERMAN ; [facility] Metoprolol Succinate ER 100M G Oral Tablet Extended Release 24 Hour 12/18/2018 Provider: Diagnosis: Last Documented On 9 1:52PM By Desi SHERMAN ; [facility] Lexapro 20MG Oral Tablet 12/18/2018 Provider: Diagnosis: Last Documented On 9 1:52PM By Desi SHERMAN ; [facility] Flonase Allergy Relief 50MCG/ACT Nasal Suspension 12/04 Provider: Diagnosis: Last Documented On 9 1:52PM By Desi SHERMAN ; [facility] Past Medications on file Gabapentin 400 MG Oral Capsule 06/22/2020 - 07/22/2020 Provider: BLU Mosley Diagnosis: Radiculopathy, l umbar region One tablet three times a day Last Documented On 06/22/2020 6:25PM By Blu Mckeon MD ; [facility] Medications Administered Includes: Administered Medications from this encounter No Administered Medications Recorded Results Includes: Results discussed during this encounter No Results Recorded For Specified Dates History of Present Illness Includes: History of Present Illness from this encounter HPI IGOR KELLER is a 60 year old male. Pharmacy name:~location:[facility]. Social History Description Last Updated Current smoker 05/17/2020 Last Documented On 1 11:37AM ; [facility] Smoker 11/02/2019 Last Documented On 1 11:37AM ; [facility] Smoking status : Current everyday smoker 05/14/2019 Last Documented On 1 11:37AM ; [facility] Medical History Includes: Medical [...] 05/17/2020 Active Last Documented On 3:19PM ; [facility] Encounters Encounter Provider Location Date Check-In Time Check-Out Time Diagnosis RX ISSUE/REFILL ZACH YL-CHANDU 06/13/2020 11:37AM 11:59PM Insurance Includes: Active Insurance Policies Plan Name Member ID Group # Subscriber Relationship Effect jim Dates 1 - [employer] [id number] IGOR KELLER Self Clinical Notes Includes: Clinical Notes from this encounter No Clinical Notes Recorded
--- OUTSIDE RECORDS SUMMARY | 2024-08-07 07:29 | XMS_ITS ---
Care Plan - [facility] Created on: August 07, 2024 ARIANNASHELLEYOLMAN Harden : 1960 Sex: Male Author Organization [facility] Address [address] [place] [address] Phone Care Team Providers Care Vp Corporate Partnerships Name Role Phone OH VALENZUELA, LINCOLN CAMPOVERDE MD, SINDY Primary Care Provider [phone]
--- OUTSIDE RECORDS SUMMARY | 2024-08-07 07:29 | XMS_ITS | Clinical Summary ---
Author Organization [facility] Address [address] [place] [address] Phone Care Team Providers Care Skills Trainer Name Role Phone OH VALENZUELA, LINCOLN CAMPOVERDE MD, SINDY Primary Care Provider [phone] Reason for Visit and Chief Complaint The [...] - Last Documented On 05/17/2020 4:23PM ; [facility] Instructions to patient Intervention and counseling on cessation of tobacco use : Patient recieved smoking cessation handout Last Documented On 3:16PM ; [facility] Education and Decision Aids were provided during visit for: Pill Count: Patient did not bring pain medication to appointment for pill count, per policy. Advised in order to continue to safely prescribe opioids, medication must be brought to each appointment Last Documented On 3:23PM ; [facility] Assessments Includes: Assessments from this encounter Findings - Lumbar spondylosis with radiculopathy [M47.26 - Other spondylosis with radiculopathy, lumbar region] - Last Documented On 05/17/2020 4:23PM ; [facility] - Lumbosacral spinal stenosis [M48.07 - Spinal stenosis, lumbosacral region] - Last Documented On 05/17/2020 4:23PM ; [facility] - Myalgia [M79.18 - Myalgia, other site] - Last Documented On 05/17/2020 4:23PM ; [facility] - Chronic pain syndrome [G89.4 - Chronic pain syndrome] - Last Documented On 05/17/2020 4:23PM ; [facility] - skilled nursing use of opiate analgesic [Z79.891 - skilled nursing (current) use of opiate analgesic] - Last Documented On 05/17/2020 4:23PM ; [facility] Instructions Includes: Instructions from this encounter Instructions to patient Intervention and counseling on cessation of tobacco use : Patient recieved smoking cessation handout Last Documented On 1 3:16PM ; [facility] Education and Decision Aids were provided during visit for: Pill Count: Patient did not bring pain medication to appointment for pill count, per policy. Advised in order to continue to safely prescribe opioids, medication must be brought to each appointment Last Documented On 3:23PM ; [facility] Medical Equipment - Implanted Devices [...] region One tablet dailyfill 04/16/20 [facility] [id number] [place] [address], [address] - Last Documented On 1 8:28AM By ZACH CONTRERAS ; [facility] Current Medications (continue as prescribed) Hysingla ER 30 MG Oral Table t ER 24 Hour Abuse-Deterrent 06/14/2020 Provider: ZACH CONTRERAS Diagnosis: Spinal stenosis, lumbosacral region One tablet dailyfill 06/15/20 Last Documented On 1 8:29AM By ZACH CONTRERAS ; [facility] Cyclobenzaprine HCl 5 MG Ora l Tablet 04/18/2020 Provider: ZACH CONTRERAS Diagnosis: Muscle spasm of back 1 BID prn Last Documented On 0 11:26AM By ZACH [facility] ; [facility] Pregabalin 100 MG Oral Capsule 02/18/2020 Provider: ZACH [facility] Diagnosis: Spinal stenosis, lumbosacral region 1 CAPSULE TWO TIMES A DAY Last Documented On 0 10:33AM By ZACH [facility] ; [facility] Lyrica 75 MG Oral Capsule 12/03/2019 Provider: ZACH LY [facility] Diagnosis: Other spondylosi s with radiculopathy, lumbar region 1 CAPSULE TWO TIMES A DAY Last Documented On 0 8:57AM By ZACH [facility] ; [facility] Depo-Testosterone 200MG/ML Intramuscular Solution 12/04 Provider: Diagnosis: Last Documented On 9 1:53PM By Desi SHERMAN ; [facility] Fenofibrate 54MG Oral Tablet 12/18/2018 Provider: Diagnosis: Last Documented On 9 1:53PM By Desi SHERMAN ; [facility] Metoprolol Succinate ER 100M G Oral Tablet Extended Release 24 Hour 12/18/2018 Provider: Diagnosis: Last Documented On 9 1:52PM By Desi SHERMAN ; [facility] Lexapro 20MG Oral Tablet 12/18/2018 Provider: Diagnosis: Last Documented On 9 1:52PM By Desi SHERMAN ; [facility] Flonase Allergy Relief 50MCG/ACT Nasal Suspension 12/04 Provider: Diagnosis: Last Documented On 9 1:52PM By Desi SHERMAN ; [facility] Past Medications on file Gabapentin 400 MG Oral Capsule 06/22/2020 - 07/22/2020 Provider: LAVELL Mosley Diagnosis: Radiculopathy, l umbar region One tablet three times a day Last Documented On 06/22/2020 6:25PM By Lavell Mckeon MD ; [facility] Medications Administered Includes: Administered Medications from this encounter No Administered Medications Recorded Vital Signs Includes: Vital Signs from this encounter Vital Name 05/17/2020 03:19P Blood Pressure Sitting (mmHg) 162/90 Pulse Rate-Sitting (bpm) 81 Temp-Oral (F) 97.3 Weight (lb) 175 Pain Level 4 Oxygen Saturation (%) 97 Last Documented: On 05/17/2020 3:21PM ; [facility] Results Includes: Results discussed during this encounter [...] 05/17/2020 Last Documented On 1 4:23PM ; [facility] Smoker 11/02/2019 Last Documented On 1 3:16PM ; [facility] Smoking status : Current everyday smoker 05/14/2019 Last Documented On 1 3:16PM ; [facility] Procedures and Surgical History Includes: Procedures from this encounter Procedures Code Diagnosis Performing Provider Service L ocation Service Date intervention and counseling on cessation of tobacco use : Patient recieved smoking cessation handout 4000F Last Documented On 1 3:16PM ; [facility] use of tobacco assessment performed 1000F Last Documented On 1 3:16PM ; [facility] standardized depression screening: negative for symptoms 3351F Last Documented On 1 3:19PM ; [facility] review of medications documented 1160F Last Documented On 1 3:16PM ; [facility] screening for adult depression: impressi on and score three Last Documented On 1 3:19PM ; [facility] Medical History Includes: Medical History addressed during [...] Active Last Documented On 1 3:19PM ; [facility] Encounters Encounter Provider Location Date Check-In Time Check-Out Time Diagnosis PAIN MANAGEMENT FOLLOW UP ZACH MIRAMONTES ANP-[facility] 05/17/19 21 3:30PM 3:53PM Chronic Pain Syndrome,Spondyl osis with Radiculopathy Lumbar Region,Spinal Stenosis Lumbosacral,Myal fredis,Coding Quality Analyst Use of Opiate Analgesic Insurance Includes: Active Insurance Policies Plan Name Member ID Group # Subscriber Relationship Effect jim Dates 1 - [employer] [id number] IGOR KELLER Self Clinical Notes Includes: Clinical Notes from this encounter No Clinical Notes Recorded
--- OUTSIDE RECORDS SUMMARY | 2024-08-07 07:29 | XMS_ITS | Clinical Summary ---
Author Organization [facility] Address [address] [place] [address] Phone Care Team Providers Care Sprinkling System Installer Name Role Phone OH VALENZUELA, LINCOLN CAMPOVERDE MD, SINDY Primary Care Provider [phone] Reason for Visit and Chief Complaint RX [...] lumbosacral region One tablet dailyfill 04/16/20 Pharmacy: [address], [address] - Last Documented On 1 3:28PM By ZACH CONTRERAS ; [facility] Current Medications (continue as prescribed) Hysingla ER 30 MG Oral Table t ER 24 Hour Abuse-Deterrent 06/14/2020 Provider: ZACH CONTRERAS Diagnosis: Spinal stenosis, lumbosacral region One tablet dailyfill 06/15/20 Last Documented On 1 8:29AM By ZACH CONTRERAS ; [facility] Cyclobenzaprine HCl 5 MG Ora l Tablet 04/18/2020 Provider: ZACH CONTRERAS Diagnosis: Muscle spasm of back 1 BID prn Last Documented On 0 11:26AM By ZACH CONTRERAS ; [facility] Pregabalin 100 MG Oral Capsule 02/18/2020 Provider: ZACH CONTRERAS Diagnosis: Spinal stenosis, lumbosacral region 1 CAPSULE TWO TIMES A DAY Last Documented On 0 10:33AM By ZACH CONTRERAS ; [facility] Lyrica 75 MG Oral Capsule 12/03/2019 Provider: ZACH SNIDER Diagnosis: Other spondylosi s with radiculopathy, lumbar region 1 CAPSULE TWO TIMES A DAY Last Documented On 0 8:57AM By ZACH GARCIA ; [facility] Depo-Testosterone 200MG/ML Intramuscular Solution 12/04 Provider: Diagnosis: Last Documented On 9 1:53PM By Desi SHERMAN ; [facility] Fenofibrate 54MG Oral Tablet 12/18/2018 Provider: Diagnosis: Last Documented On 9 1:53PM By Desi SHERMAN ; [facility] Metoprolol Succinate ER 100M G Oral Tablet Extended Release 24 Hour 12/18/2018 Provider: Diagnosis: Last Documented On 9 1:52PM By Desi SHERMAN ; [facility] Lexapro 20MG Oral Tablet 12/18/2018 Provider: Diagnosis: Last Documented On 9 1:52PM By Desi SHERMAN ; [facility] Flonase Allergy Relief 50MCG/ACT Nasal Suspension 12/04 Provider: Diagnosis: Last Documented On 9 1:52PM By Desi SHERMAN ; [facility] Past Medications on file Gabapentin 400 MG Oral Capsule 06/22/2020 - 07/22/2020 Provider: LAVELL Mosley Diagnosis: Radiculopathy, l umbar region One tablet three times a day Last Documented On 06/22/2020 6:25PM By Lavell Mckeon MD ; [facility] Medications Administered Includes: Administered Medications from this encounter No Administered Medications Recorded Results Includes: Results discussed during this encounter No Results Recorded For Specified Dates History of Present Illness Includes: History of Present Illness from this encounter No History of Present Illness Recorded Social History Description Last Updated Smoker 11/02/2019 Last Documented On 0 11:21AM ; [facility] Smoking status : Current everyday smoker 05/14/2019 Last Documented On 0 11:21AM ; [facility] Medical History Includes: Medical History addressed during [...] Active Last Documented On 1 3:19PM ; [facility] Encounters Encounter Provider Location Date Check-In Time Check-Out Time Diagnosis RX ISSUE/REFILL ZACH MIRAMONTES ANP-BC 04/13/2020 11:21AM 11:59PM Insurance Includes: Active Insurance Policies Plan Name Member ID Group # Subscriber Relationship Effect jim Dates 1 - [employer] [id number] IGOR KELLER Self Clinical Notes Includes: Clinical Notes from this encounter No Clinical Notes Recorded
--- OUTSIDE RECORDS SUMMARY | 2024-08-07 07:30 | XMS_ITS | Clinical Summary ---
Author Organization [facility] Address [address] [place] [address] Phone Care Team Providers Care Can Solderer Name Role Phone OH VALENZUELA, LINCOLN CAMPOVERDE MD, SINDY Primary Care Provider [phone] Reason for Visit and Chief Complaint * [...] spasm of back 1 BID prn Pharmacy: [address], [address] - Last Documented On 0 11:26AM By ZACH CONTRERAS ; [facility] Current Medications (continue as prescribed) Hysingla ER 30 MG Oral Table t ER 24 Hour Abuse-Deterrent 06/14/2020 Provider: ZACH CONTRERAS Diagnosis: Spinal stenosis, lumbosacral region One tablet dailyfill 06/15/20 Last Documented On 1 8:29AM By ZAHC CONTRERAS ; [facility] Pregabalin 100 MG Oral Capsule 02/18/2020 Provider: ZACH CONTRERAS Diagnosis: Spinal stenosis, lumbosacral region 1 CAPSULE TWO TIMES A DAY Last Documented On 0 10:33AM By [facility] ; [facility] Lyrica 75 MG Oral Capsule 12/03/2019 Provider: ZACH SNIDER Diagnosis: Other spondylosi s with radiculopathy, lumbar region 1 CAPSULE TWO TIMES A DAY Last Documented On 0 8:57AM By [facility] ; [facility] Depo-Testosterone [...] 06/22/2020 6:25PM By Lavell Mckeon MD ; [facility] Medications Administered Includes: Administered Medications from this encounter No Administered Medications Recorded Results Includes: Results discussed during this encounter No Results Recorded For Specified Dates History of Present Illness Includes: History of Present Illness from this encounter No History of Present Illness Recorded Social History Description Last Updated Smoker 11/02/2019 Last Documented On 0 11:08AM ; [facility] Smoking status : Current everyday smoker 05/14/2019 Last Documented On 0 11:08AM ; [facility] Medical History Includes: Medical History addressed during [...] 1 3:19PM ; [facility] Encounters Encounter Provider Location Date Check-In Time Check-Out Time Diagnosis * PHONE CALL ZACH GARCIA 04/18/2020 11:08AM 11:59PM Insurance Includes: Active Insurance Policies Plan Name Member ID Group # Subscriber Relationship Effect jim Dates 1 - [employer] [id number] IGOR KELLER Self Clinical Notes Includes: Clinical Notes from this encounter No Clinical Notes Recorded
[2024-08-07 07:39] LABS: Basophils Absolute Auto 0.08 K/mm3 (0.00-0.10); Basophils Percent Auto 1.1 % (0.0-1.0); Eosinophils Absolute Auto 0.17 K/mm3 (0.02-0.50); Eosinophils Percent Auto 2.4 % (1.0-6.0); Hematocrit 49.3 % (40.0-54.0); Hemoglobin 15.1 g/dL (14.0-18.0); Immature Granulocyte Absolute 0.02 K/mm3 (0.00-0.00); Immature Granulocyte Percent A 0.3 % (0.0-0.0); Lymphocytes Absolute Auto 0.98 K/mm3 (1.10-4.50); Mean Corpuscular HGB Conc 30.6 g/dL (32-36); Mean Corpuscular Hemoglobin 25.4 pg (27.0-31.0); Mean Corpuscular Volume 82.9 fL (78.0-102.0); Mean Platelet Volume 9.2 fl (8.7-11.0); Monocytes Absolute Auto 0.62 K/mm3 (0.10-0.90); Monocytes Percent Auto 8.9 % (2.0-11.0); Neutrophils Absolute Auto 5.13 K/mm3 (1.70-7.20); Neutrophils Percent Auto 73.3 % (50.0-70.0); Platelet Count Result 173 K/mm3 (150-420); Red Blood Count 5.95 M/mm3 (4.70-6.10); Red Cell Distribution Width 17.9 % (11.6-14.4)
[2024-08-12 10:48] LABS: Testosterone Total 794 ng/dL (250-1100)
== END 2024-08-07 07:27 | disposition home or self-care (01) ==
LOC: CHSLAB 07:27
PROVIDERS: PCP Nurse Practitioner Family; Visit Provider Nurse Practitioner Family
DX: R79.89 Other specified abnormal findings of blood chemistry (principal)
CPT/HCPCS: 36415; 84403; 85025

== ENCOUNTER 2024-10-21 08:03 | Outpatient (CLI) | payer OTHER, SELFPAY ==
--- OUTSIDE RECORDS SUMMARY | 2024-10-21 08:12 | XMS_ITS | Data Portability ---
Author Organization [facility] CAROL P, [address] Neurology ([place]) Address [address] [place] [address] Care Team Providers Care Automotive Hardware Engineer Name Role Phone SHAHBAZ VELÁZQUEZ Primary Care Provider ANN SMITH Vascular Surgeon Assessment Encounter Date Assessment Date Assessment LastModified by Organization Details LastModified Time 08/18/2024 08/18/2024 Findings were discussed with the patient. He continues to do well with a gentle exercise program and now has very good control of his risk factors. He is not smoking. He continues on Plavix and has good control of his risk factors. Since he is not having any symptoms, I suggested that he call us as needed if anything worsens. He is in agreement with that plan and will call if any new problems arise. [email or web address] Not available 08/18/2024 16:11:41 Plan of Treatment Reminders Order Date Submit Date Provider Last Modified By Organization Details Last Modified Time Details Appointments None record ed. Lab None record ed. Referral None record ed. Procedures None record ed. Surgeries None record ed. Imaging None record ed. Medication Orders None record ed. Patient TargetsNo targets recorded. Patient InstructionsNo instructions recorded. Reason for Referral None Reported. Problems Name Problem SNOMED Code Status Onset Date Resolution Date Notes Provider Name and Address Organization Details Recorded Time Intermittent claudication 59863947 Active 2024 Loida bardales, [facility] 15:26:13 Mixed hyperlipidemia 433852797 Active 2024 Ann Smith MD [address] [place] [address], [phone], [facility] 5 16:13:07 Essential hypertension 34417546 Active 2024 Ann Smith MD [address] [place] [address], [phone], [facility] 5 16:13:22 Problem Notes None recorded. Procedures Surgical History Date Name Laterality Status Provider Name and Address Organization Details Recorded Time insertion of iliac artery stent completed Loida Mcmillan [facility] 08/18/2024 15:27:54 Imaging Results None recorded. Procedure Notes None recorded. Medical Equipment None Reported. Medications Name Sig Start Date Stop Date Status Note LastModified by Organization Details LastModified Time BD Luer-Onesimo Syringe 3 mL 23 x 1 USE 1 SYRINGE ONCE EVERY MONTH DIRECTED active Not Available Not Available No t Available cyclobenzapr ine 10 mg tablet TAKE 1 TABLET BY MOUTH AT BEDTIME NEEDED FOR MUSCLE SPASM active Not Available Not Available No t Available metoprolol succinate ER 200 mg tablet,exten ded release 24 hr TAKE 1 TABLET BY MOUTH ONCE DAILY active Not Available Not Available No t Available gabapentin 400 mg capsule TAKE 1 CAPSULE BY MOUTH THREE TIMES DAILY active Not Available Not Available Not Available clopidogrel 75 mg tablet TAKE 1 TABLET BY MOUTH ONCE DAILY active Not Available Not Available No t Available lisinopril 20 mg-hydrochlo rothiazide 25 mg tablet TAKE 1 TABLET BY MOUTH TWICE DAILY active Not Available Not Available No t Available testosterone cypionate 200 mg/mL intramuscula r oil INJECT 2 ML INTRAMUSCUL VERO ONCE EVERY MONTH active Not Available Not Available Not Available lisinopril 40 mg tablet TAKE 1 TABLET BY MOUTH ONCE DAILY active Not Available Not Available No t Available rosuvastatin 20 mg tablet TAKE 1 TABLET BY MOUTH ONCE DAILY AT BEDTIME active Not Available Not Available No t Available multivitamin 1 tablet daily active Not Available Not Available No t Available Vitals Date Recorded Body weight Heart rate Respiratory rate Oxygen saturation Oxygen saturation in Arterial blood by Pulse oximetry Systolic blood pressure Diastolic blood pressure Provider Name and Address Organization Details Last Updated DateTime 5 00941.7 5 g 67 /min 16 /min 98 % 98 % 160 mm[Hg] 80 mm[Hg] Loida Mcmillan [facility] 5 15:25:02 Social History Question Answer Notes LastModified by Organizat ion Details LastModified Time Tobacco Smoking Status Former Smoker Not Available Health Note 08/13/2024 18:38:58 Do You Have An Advance Directive? Yes [email or web address] Information not available 08/13/2024 What Is Your Level Of Caffeine Consumption? Moderate [email or web address] Information not available 08/13/2024 What Is Your Code Status? Full Code [email or web address] Information not available 08/13/2024 How Many Times Per Week Do You Exercise? 1-2 Times Per Week [email or web address] Information not available 08/13/2024 Smokeless Tobacco? Former Smokeless Tobacco User [email or web address] Information not available 08/13/2024 E-cigarettes Or Vaporization Device? Uses Nicotine Containing Device [email or web address] Information not available 08/13/2024 When Did You Quit Smoking? 03/31/2024 [email or web address] Information not available 08/13/2024 What Was The Date Of Your Most Recent Tobacco Screening? 08/18/2024 [email or web address] Information not available 08/13/2024 What Is Your Relationship Status? [email or web address] Information not available 08/13/2024 Sex: Unknown Functional Status Question Answer Note LastModified by Organizat ion Details LastModified Time Do you use any illicit or recreational drugs? No [email or web address] Information not available 08/13/2024 What is your level of alcohol consumption? None [email or web address] Information not available 08/13/2024 Are you currently employed? 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 Occasional [email or web address] Information not available 08/13/2024 Mental Status None recorded. Family History Relationship Description Onset Age of this Age Resolved Age Notes LastModified by Organization Details LastModified Time Father Alzheimer's disease [email or web address] Not available 2024 18:38:57 Father Arthritis [email or web address] Not available 08/13/2024 18:38:57 Father Family history of malignant neoplasm [email or web address] Not available 2024 18:38:57 Father Heart disease [email or web address] Not available 2024 18:38:57 Father Hypertensive disorder [email or web address] Not available 2024 18:38:57 Mother Arthritis [email or web address] Not available 08/13/2024 18:38:57 Mother Heart disease [email or web address] Not available 2024 18:38:57 Mother Hypertensive disorder [email or web address] Not available 2024 18:38:57 Medical History Condition Response Diabetes N Anxiety Disorder N Bleeding Disorder N Attention-deficit Hyperactivity Disorder N High Blood Pressure Y Arthritis N Hyperlipidemia N Cancer N Stroke N Thyroid Problems N Asthma N Depression N COPD N Anemia N Seizures N Heart Disease N Fibromyalgia N Osteoporosis Y Kidney Disease N Past Encounters Encounter ID Performer Location Encounter Start Date Encounter Closed Date Diagnosis/Indication Diagnosis SNOMED-CT Code Diagnosis ICD10 Code Diagnosis Note [id number] Ann Smith MD [address] [facility] [place] ([place]) [address] [place] [address],[address] [place] [phone] 08/18/2024 15:13:17 08/18/2024 16:48:22 Essential hypertension 09125719 I10 Intermitte nt claudication 62496024 I73.9 Vascular claudicati on left leg, stable to improved with exercise program and cessation of smoking Mixed hyperlipidemia 267 944776 E78.2 Health Concerns Section Related Observation LastModified by Organization Detai ls LastModified Time None Recorded Concern Status LastModified by Organization Details LastModified Time None Recorded Advance Directives Directive Y: Payers Insurance Date Sequence Insurance Name Policy Number Policy Sidhu Covered Member ID Sidhu Member ID Guarantor Name 09/04/2024 1 [employer] ([facility]) [id number] Bao Magdaleno [id number] Bao Magdaleno Notes Date Note Type Note Provider Name and Address Organization Details Recorded Time 08/18/2024 text/html 64-year-old male is seen in follow-up of his peripheral arterial disease with left leg claudication. Since his last visit in July 2023, he states that his walking is not really impaired at all. Occasionally he will get a cramp in the left leg when he is walking but he is not able to predict exactly what would stimulate that. On a regular day he has no difficulty at all and he is quite happy with the results of his exercise program. In addition, he states that he completely stopped smoking March 31, 2024. He was slowly working his way down and 1 day just decided that was it. However he still uses a fair amount of marijuana. No new chest pain or new breathing problems have occurred. He is a little bit stressed because his is in the intensive care unit at [facility] with aspiration pneumonia. She is paraplegic and has failed her swallowing test and will now get a G-tube. He is encouraged that that may help prevent her from getting the aspiration as she has been getting that at least once a year. Patient himself has not had any neurological symptoms or falls. He is retired but spends much of his time caring for his . Blood pressure is a little high today but generally he does have good control on his lisinopril and metoprolol. He is taking rosuvastatin and Plavix. Ann Smith MD [address] [place] [address], [phone], [facility] 08/18/2024 16:14:27
[2024-10-24 22:34] LABS: Testosterone Total 483 ng/dL (250-1100)
== END 2024-10-21 08:04 | disposition home or self-care (01) ==
PROVIDERS: PCP Family Medicine; Visit Provider Nurse Practitioner Family
DX: R79.89 Other specified abnormal findings of blood chemistry (principal)
CPT/HCPCS: 36415; 84403

== ENCOUNTER 2024-12-05 10:36 | Outpatient (CLI) | payer OTHER, SELFPAY ==
--- NOTE | ~2024-12-05 | XR_ITS ---
XR lumbar spine min 4V 12/05/2024 10:52 Indication: Chronic low back pain. No known injury. Procedure: 5 views lumbar spine Comparison: No prior studies for comparison. Findings: There is disc narrowing at L3-4 through L5-S1. There are facet degenerative changes L3-4 th rough L5-S1. Vertebral body heights are maintained. Prominent ventral bridging osteophyte at L3-4. No acute fracture, subluxation or dislocation. Pedicles intact. There is a vascular stent in the left i liac location. Impression: 1: Moderate lumbar spondylosis. Reviewed, dictated and finalized at location A. Impression: 1: Moderate lumbar spondylosis.
--- OUTSIDE RECORDS SUMMARY | 2024-12-05 10:41 | XMS_ITS | Encounter Summary ---
Author Organization [facility] Address [address] [place] [address] Care Team Providers Care Shot Hole Driller Name Role Phone Zoya Tanner Primary Care Provider [phone] Una Zurita MD Unavailable Encounter Details Date Type Department Care Team (Late st Contact Info) Description 07/20/2017 Abstract [facility] CONVERSION [address] [place], [place] [id number] , Generic ConversionMD Social History Tobacco Use Types Packs/Day Years Used Date Smoking Tobacco: Never Assessed Sex and Gender Information Value Date Recorded Sex Assigned at Not on file 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
--- OUTSIDE RECORDS SUMMARY | 2024-12-05 10:41 | XMS_ITS | Clinical Summary ---
Author Organization [facility] Address [address] [place] [address] Care Team Providers Care House Builder Name Role Phone Zoya Tanner WASTE PAPER HAMMERMILL OPERATOR Primary Care Provider + [phone] Una Zurita MD Unavailable Allergies Active Allergy [...] Take 350 mg by mouth daily. Active rosuvastatin (CRESTOR) 20 MG tablet Take 1 tablet (20 mg total) by mouth nightly at bedtime. 90 tablet 3 4 Active lisinopril-hydr oCHLOROthiazide (ZESTORETIC) 20-25 MG tablet Take 1 tablet by mouth daily. 30 tablet 11 4 Active Additional Information Patient not taking.Reported on 11/26/2024 clopidogrel (PLAVIX) 75 MG tablet Take 1 tablet by mouth once daily 30 tablet 6 5 Active metoprolol succinate ER (TOPROL-XL) 200 MG 24 hr tablet Take 1 tablet by mouth once daily 30 tablet 6 5 Active lisinopril (PRINIVIL) 40 MG tablet Take 1 tablet (40 mg total) by mouth daily. Active amLODIPine (NORVASC) 5 MG tablet Take 1 tablet (5 mg total) by mouth daily. 90 tablet 6 5 Active Active Problems No known active problems Encounters Date Type Department Care Team Description 11/26/2024 9:30 AM CDT Office Visit Person [facility] [address] [phone] Una Zurita MD Heart Problem 11/26/2024 Scan [facility] [facility] [address] [place] [address] Scanned, Doc Pccl 11/25/2024 Telephone [facility] [facility] [address] [place] [address] Una Zurita MD Appointment Reminder 11/25/2024 Travel 11/24/2024 Orders Only Person [facility] [facility] [address] [place] [address] Una Zurita MD from Last 3 Months Family History Medical History Relation Comments Open [...] on file 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 Gender Identity Not on file Sexual Orientation Not on file Last Filed Vital Signs Vital Sign Reading Time Taken Comments Blood Pressure 178/106 11/26/2024 11:09 AM CDT Pulse 62 11/26/2024 11:09 AM CDT Temperature 36.9 C (98.4 F) 09/01/2021 6:28 AM CDT Respiratory Rate 16 11/26/2024 11:0 9 AM CDT Oxygen Saturation 99% 11/26/2024 11: 09 AM CDT Inhaled Oxygen Concentration - - Weight 78.8 kg (173 lb 12.8 oz) 025 11:09 AM CDT Height 165.1 cm (5' 5) 11/26/2024 11:0 9 AM CDT Body Mass Index 28.92 11/26/2024 11:09 AM CDT Plan of Treatment Health Maintenance Due Date Last Done Comments Colorectal Cancer Screening Colonoscopy (10 Years) 1961 Annual Physical 01/05/1964 Hepatitis C 1979 Pneumococcal Vaccine: 50+ Years (1 of 2 - PCV) 01/05/1980 Zoster Vaccines (1 of 2) 2011 COVID-19 Vaccine (3 - 2023-2 5 season) 2024 05/17/2021, 07/11/2020, 07/11/2020 DTaP, Tdap and Td Vaccines ( 2 [...] on patient's age to complete this topic Procedures Procedure Name Priority Date/Time Associated Diagnosis Comments ELECTROCARDIOGRAM, TRACING Routine 11/26/2024 Atrial fibrillation, unspecified type ([facility]) from Last 3 Months Results * NOT [facility] - ELECTROCARDIOGRAM, TRACING (11/26/2024) Una Zurita MD PROCEDURES-UNRESULTED Final Resu lt from Last 3 Months Insurance Sendmybag[employer] Advance Directives * Full Code (Latest Code Status on File) Date Activated Date Inactivated Comments 09/01/2021 9:43 AM 09/01/2021 7:23 PM Care Teams House Builder Relationship Specialty Start Date End Date Zoya Tanner FNP [address] [place] [address] PCP - General NURSE PRACTITIONER 08/31/21 Una Zurita MD [address] [place] [address] [place] [employer] Spotter CARDIOVASCULAR DISEASE 10/03/22
--- OUTSIDE RECORDS SUMMARY | 2024-12-05 10:41 | XMS_ITS | Encounter Summary ---
Author Organization [facility] - [facility] Address [address] [place] [address] Care Team Providers Care Job Order Clerk Name Role Phone Zoya Tanner Primary Care Provider [phone] Una Zurita MD Unavailable Encounter Details Date Type Department Care Team (Late st Contact Info) Description 11/26/2024 [facility] [address] [place] [phone] Scanned, Doc Pccl Social History Tobacco Use Types Packs/Day Years Used Date Smoking Tobacco: Every Day Cigarettes Smokeless Tobacco: Never Alcohol Use Standard Drinks/Week Comments Never 0 (1 standard drink = 0.6 oz pur e alcohol) Sex and Gender Information Value Date Recorded Sex Assigned at Not on file 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 Gender Identity Not on file Sexual Orientation Not on file documented as of this encounter Plan of Treatment Not on file documented as of this encounter Procedures Procedure Name Priority Date/Time Associated Diagnosis Comments ELECTROCARDIOGRAM, TRACING Routine 11/26/2024 Atrial fibrillation, unspecified type (CMS/HCC HHS/HCC) documented in this encounter Results * NOT [facility] - ELECTROCARDIOGRAM, TRACING (11/26/2024) us Una Zurita MD PROCEDURES-UNRESULTED Final Resu lt documented in this encounter Visit Diagnoses Diagnosis Atrial fibrillation, unspecified type (CMS/HCC HHS/HCC) documented in this encounter Care Teams Job Order Clerk Relationship Specialty Start Date End Date Zoya Tanner, ANNETTE [address] [place] [address] PCP - General NURSE PRACTITIONER 08/31/21 Una Zurita MD [address] [place] [address] [place] [facility]ist CARDIOVASCULAR DISEASE 10/03/22 documented as of this encounter
== END 2024-12-05 10:37 | disposition home or self-care (01) ==
LOC: CHSIMG 10:37
PROVIDERS: PCP Nurse Practitioner Family; Visit Provider Nurse Practitioner Family
DX: M54.50 Low back pain, unspecified (principal); M43.06 Spondylolysis, lumbar region
CPT/HCPCS: 72110